=== PATIENT | female | born 1935 | race Caucasian/White ===

== ENCOUNTER 2017-05-09 12:37 | Inpatient (IN) | payer MEDICARE, MEDICAID ==
[2017-05-09 12:51] VITALS: BMI 18.8
[2017-05-09] MEDS ORDERED: Vancomycin 1 gm/NS 200 ml 1 GM/200 ML BAG IVPB STA (13:03)
[2017-05-09] MEDS ORDERED: Piperacill/Tazo 4.5gm in Dex 4.5 GM/100 ML BAG IVPB STA (13:03)
[2017-05-09] MEDS ORDERED: Gentamicin 190 MG in Sodium Chloride 0.9% 100 ML IVPB STA (13:03)
[2017-05-09 13:11] LABS: VENOUS BLOOD GAS BASE EXCESS -1.8 mmol/L (0.0-2.0); VENOUS BLOOD GAS PCO2 48 mmHg (40-60); VENOUS BLOOD GAS PO2 13 mm/Hg (30-55); VENOUS BLOOD PH 7.32 (7.32-7.43)
[2017-05-09 13:13] LABS: BASO % 0.3 % (0.0-2.0); HEMOGLOBIN 9.8 g/dL (11.0-16.0); LYMPH # 2.1 K/uL (1.0-4.3); LYMPH % 15.4 % (20.0-40.0); MEAN CORPUSCULAR HEMOGLOBIN 26.2 pg (27.0-31.0); MEAN CORPUSCULAR HGB CONC 29.5 g/dL (33.0-37.0); MEAN PLATELET VOLUME 9.2 fL (7.2-11.7); MONO # 0.4 K/uL (0.0-0.8); MONO % 2.8 % (0.0-10.0); NEUT # 10.9 K/uL (1.8-7.0); NEUT % 81.5 % (50.0-75.0); RBC 3.74 Mil/uL (3.80-5.20); WHITE BLOOD COUNT 13.4 K/uL (4.8-10.8)
[2017-05-09 13:22] LABS: INR 1.4
[2017-05-09 13:23] LABS: ALBUMIN 3.3 g/dL (3.5-5.0)
[2017-05-09 13:26] LABS: ALB/GLOB RATIO 0.5 (1.0-2.1)
[2017-05-09 13:27] LABS: CALCIUM 10.1 mg/dl (8.6-10.4); MAGNESIUM 2.8 mg/dL (1.6-2.3)
--- NOTE | 2017-05-09 13:27 | C.PDOC ---
History Of Present Illness Pt is an 82 yr old female retirement pt with a PMHx of dementia, osteoperosis , HTN, COPD, GERD, aphasia who is nonverbal who presents to the ED and per retirement sheet patient with "respiratory distress". No additiona HPI is available on CO sheet and pt remains nonverbal--unable to provide any hx. BP at NH 88/60; pulse ox on RA 88% at CO. I did call the daughter (Aide Kramer -- lives in [place], [place]) and she verbally confirmed that the pt is DNR; she confirmed that we should not intubate or do CPR (she was also in process of trying to arrange hospital for mother). PMD Dr. Jaleel Albarran confirmed the same. Time Seen by Provider: 05/09/17 12:53 Chief Complaint (Nursing): Respiratory Distress History Per: Other (Custodial) Past Medical History Reviewed: Historical Data, Nursing Documentation, Vital Signs Vital Signs: Last Vital Signs Temp 100.2 F H 05/09/17 14:55 Pulse 118 H 05/09/17 14:55 Resp 28 H 05/09/17 14:55 BP 142/76 05/09/17 14:55 Pulse Ox 92 L 05/09/17 13:56 - Medical History PMH: COPD, Dementia, HTN, Hypercholesterolemia, Osteoporosis Family History: States: Unknown Family Hx - Social History Hx Tobacco Use: No Hx Alcohol Use: No (UNKNOWN) Hx Substance Use: No (UNKNOWN) - Immunization History Hx Tetanus Toxoid Vaccination: No Review Of Systems Review Of Systems: ROS cannot be obtained secondary to pt's inabilty to answer questions. Respiratory: Positive for: Shortness of Breath Physical Exam - Physical Exam Appears: Toxic (Looks ill; nonverbal) Skin: Other (sacral ulcer) Head: Atraumatic Eye(s): bilateral: EOMI Nose: Normal Oral Mucosa: Dry Tongue: Normal Appearing Lips: Normal Appearing Throat: Normal Neck: Normal Lymphatic: Deferred Chest: Symmetrical Cardiovascular: Rhythm Regular Respiratory: Decreased Breath Sounds (TROY) Gastrointestinal/Abdominal: Normal Exam, Bowel Sounds, Soft, No Tenderness Rectal: Deferred Extremity: Other (contracted) Extremity: Bilateral: Atraumatic Neurological/Psych: Other (nonverbal) ED Course And Treatment - Laboratory Results Result Diagrams: 05/09/17 13:09 05/09/17 13:09 O2 Sat by Pulse Oximetry: 92 Critical Care Time - Critical Care Note Total Time (in mins): 45 Documented critical care: time excludes all time spent performing seperately billable procedures. Medical Decision Making Medical Decision Making: Initial Impression: Septic Shock Initial Plan: Will activate code sepsis order set Dr. Albarran recommends admission to Dr. Ap Uriosetgui I spoke to Dr. Ap Uriostegui--agrees w/ admission. I spoke to ICU attending pay station attendant. He states end-stage dementia plus DNR/DNI is an ICU exclusion criteria here at [facility]. Disposition - Disposition Disposition: HOSPITALIZED Disposition Time: 13:49 Condition: CRITICAL - POA Present On Arrival: Pressure Ulcer - Clinical Impression Clinical Impression: Septic shock, Hypernatremia, Dementia, Sacral decubitus ulcer, Chronic obstructive lung disease, Respiratory distress Decision To Admit - Pt Status Changed To: Hospital Disposition Of: Inpatient - Admit Certification Admit to Inpatient:: After my assessment, the patient will require hospitalization for at least two midnights. This is because of the severity of symptoms shown, intensity of services needed, and/or the medical risk in this patient being treated as an outpatient. - InPatient: Physician Admission Certification: I certify that this patient requires 2 or more midnights of care for the following reason:: Pt w/ septic shock - . Bed Request Type: Telemetry Admitting Physician: Ap Uriostegui Patient Diagnosis: Septic shock, Hypernatremia, Dementia, Sacral decubitus ulcer, Chronic obstructive lung disease, Respiratory distress
[2017-05-09] MEDS ORDERED: Vancomycin 1 GM 1 GM/250 ML BAG IVPB ONE (13:31)
[2017-05-09 13:35] LABS: PROTHROMBIN TIME 16.3 SECONDS (9.7-12.2)
[2017-05-09 13:42] LABS: TROPONIN I 0.017 ng/mL (0.00-0.120)
[2017-05-09] MEDS ORDERED: Sodium Chloride 0.9% 1,000 ML IV ONE (13:44)
[2017-05-09] MEDS ORDERED: Albuterol-Ipratrop 3 mg / 0.5 (3 ml) UD INH STA ×2 (13:50→14:28)
[2017-05-09] MEDS ORDERED: Sodium Chloride 0.9% 3,000 ML ONE (14:07)
[2017-05-09 14:18] LABS: SQUAMOUS EPITHIAL 2 /hpf (0-5); URINE BACTERIA FEW (<OCC); URINE BILIRUBIN NEGATIVE (NEGATIVE); URINE BLOOD NEGATIVE (NEGATIVE); URINE CLARITY Hazy (Clear); URINE COLOR Amber (YELLOW); URINE GLUCOSE (UA) NORMAL (Normal); URINE LEUKOCYTE ESTERASE TRACE Leu/uL (Negative); URINE NITRATE NEGATIVE (NEGATIVE); URINE PROTEIN 1+ mg/dL (NEGATIVE)
[2017-05-09] MEDS ORDERED: Albuterol-Ipratrop 3 mg / 0.5 (3 ml) UD ONE (14:29)
--- NOTE | 2017-05-09 16:48 | RAD ---
HISTORY: Sepsis Patient COMPARISON: No prior. FINDINGS: LUNGS: No consolidation. No gross pulmonary vascular congestion. Possible emphysematous changes PLEURA: No significant pleural effusion identified, no pneumothorax apparent. CARDIOVASCULAR: Probable left ventricular enlargement aortic knob atherosclerotic vascular calcification OSSEOUS STRUCTURES: Analyzed osteopenia. Thoracolumbar spondylosis. Bilateral shoulder arthrosis VISUALIZED UPPER ABDOMEN: Normal. OTHER FINDINGS: None. IMPRESSION: No acute cardiopulmonary pathology apparent
[2017-05-09] MEDS ORDERED: Sodium Chloride 0.45% 1,000 ML IV SCH (17:15)
[2017-05-09 17:18] LABS: VENOUS BLOOD GAS BASE EXCESS -7.3 mmol/L (0.0-2.0); VENOUS BLOOD GAS PCO2 47 mmHg (40-60); VENOUS BLOOD GAS PO2 37 mm/Hg (30-55); VENOUS BLOOD PH 7.24 (7.32-7.43)
[2017-05-09] MEDS: Piperacill/Tazo 3.375gm in Dex 3.375 GM/50 ML BAG IVPB SCH (17:39)
--- NOTE | 2017-05-09 19:29 | HP ---
HISTORY OF PRESENT ILLNESS: I was called to the Emergency Room at [facility] Room wit h an 82-year-old female from [facility] who presented with respiratory distress. She is nonverbal. That is her baseline. She is unable to give any history. PAST MEDICAL HISTORY: She has a past medical history of dementia, osteoporosis, hypertension, COPD, GERD. She is aphasic, nonverbal. She is bedridden at the [facility]. She is a DNR/DNI. We put that in the computer. No CPR. On further medical history, COPD, dementia, hypertension, high cholesterol, osteoporosis. PAST SURGICAL HISTORY: No known surgeries. SOCIAL HISTORY: No smoking, no drinking, no drugs. MEDICATIONS SHE TAKES FROM THE GROUP HOME: She is on albuterol for her asthma, COPD history, Bactr oban cream for scrapes and bruises, Fosamax for osteoporosis, clonidine for hypertension, magnesium r eplacement, milk of magnesia, calcium, and Tylenol as needed. REVIEW OF SYSTEMS: Cannot do a review of systems. She just looks at you, which is her baseline, and nonverbal. PHYSICAL EXAMINATION: VITAL SIGNS: She has 100.2 temp, 118 pulse, 28 respiratory rate, 142/76 blood pressure, 92% oxygen s aturation. GENERAL: She looks ill, nonverbal, and toxic, in distress. HEENT: Head is atraumatic, normocephalic. Throat is dry. NECK: Supple. Thyroid midline. No palpable lymphadenopathy. HEART: Regular rate. LUNGS: Decreased breath sounds, clear to auscultation. ABDOMEN: Soft, nontender, positive bowel sounds. She is thin and frail. EXTREMITIES: Contracted. No edema. SKIN: She does have a sacral ulcer. LABORATORY DATA: On blood tests, she has 166 sodium, 3.5 potassium. I will replace the potassium. She has a BUN of 60, creatinine 1.6. She is definitely in a bit of renal failure. She is dehydrated . Sugar was 299, which she is clearly a diabetic and should be on insulin coverage. Lactic acid 3.8 , quite high, calcium is 10.1, phos is 4.1, magnesium 2.8, total bili is 1, AST is 53, ALT is 42, alk phos 141. Troponin 0.01. BNP was 443, total protein is 9.6, albumin is 3.3, globulin 6.3. Blood g as was acidotic at 7.32. INR is 1.4. A 13.4 white count, elevated, 9.8 hemoglobin, 13.83 hematocrit , with 389 platelets. Chest x-ray with no acute disease. ASSESSMENT AND PLAN: She is here for being in septic shock, dehydration, high sodium, low potassium, elevated blood sugar. She has now a diabetic with no history of that coming the [facility]. I wi ll call in infectious disease, renal, and pulmonary for their consults and opinions. Will put her on IV antibiotics, IV fluids. Watch her very closely. Check her labs tomorrow. Ap Uriostegui DO cc: [id number] TT: 05/09/2017 19:27:41 maureen
[2017-05-09] MEDS: Albuterol-Ipratrop 3 mg / 0.5 (3 ml) UD INH SCH (22:03)
[2017-05-10] MEDS: Piperacill/Tazo 3.375gm in Dex 3.375 GM/50 ML BAG IVPB SCH ×3 (01:05→19:06)
[2017-05-10] MEDS: Albuterol-Ipratrop 3 mg / 0.5 (3 ml) UD INH SCH ×4 (01:26→19:35)
[2017-05-10 08:20] LABS: ALBUMIN 2.6 g/dL (3.5-5.0)
[2017-05-10 08:22] LABS: ALB/GLOB RATIO 0.6 (1.0-2.1); CALCIUM 8.7 mg/dl (8.6-10.4)
[2017-05-10 08:32] LABS: MEAN CELL VOLUME 88.7 fL (81.0-99.0); MEAN CORPUSCULAR HEMOGLOBIN 25.9 pg (27.0-31.0); MEAN CORPUSCULAR HGB CONC 29.3 g/dL (33.0-37.0); MEAN PLATELET VOLUME 9.3 fL (7.2-11.7); RBC 2.84 Mil/uL (3.80-5.20); RED CELL DISTRIBUTION WIDTH 17.2 % (11.5-14.5); WHITE BLOOD COUNT 13.7 K/uL (4.8-10.8)
[2017-05-10 08:41] LABS: HEMOGLOBIN 7.4 g/dL (11.0-16.0)
[2017-05-10] MEDS: (Novolin R) Insulin Human Regular 100 units/ml vial SC SCH ×4 (08:59→22:39)
--- NOTE | 2017-05-10 10:12 | PN ---
DATE: 05/10/2017 I saw her resting in bed in [facility]. IV fluids are running. She is alert. She is looking a t me. Definitely more comfortable than yesterday when I saw her, less upset, breathing better. Mayb e the antibiotics are starting to work and the fluids are helping. Labs are pending this morning. PHYSICAL EXAMINATION: VITAL SIGNS: She has a 98.1 temp, 101 pulse, 114/68 blood pressure, 20 respiratory rate, 95% O2 sat on nasal cannula. HEENT: Her head is atraumatic, normocephalic. She opens her eyes. She looks at me. She is nonverb al. HEART: Regular rate, tachy. LUNGS: Decreased breath sounds, but clear to auscultation bilaterally. ABDOMEN: Soft, scaphoid, nontender, positive bowel sounds. No apparent guarding. EXTREMITIES: She is in a contracted state with her upper and lower extremities. No edema though. She is currently on DuoNeb, insulin coverage, IV fluids and Zosyn IV. We will put her on her diet. I discussed that with the nurse, what she was getting at the nursing [facility]. She came in with an elevated white count of 13.4, hemoglobin of 9.8. Her sodium was domi high at 166, potassium was low at 3.5, that was replaced, BUN is 16, creatinine is 1.6. She was in renal failure mildly. Her blood sugars are 243. She does have coverage. We will see what this morning's labs ar e now that she has been on IV fluids for about 24 hours. Waiting for infectious disease, renal and p ulmonary advice. Check her labs tomorrow. Continue with aggressive treatment and care on the natividad fraga, who is nonverbal[facility] here with possible septic shock, dehy dration, sacral decubitus, diabetes, low potassium, hypernatremia. Ap Uriostegui DO cc: [id number] TT: 05/10/2017 08:32:05 Confirmation # [id number] Dictation # [id number]
[2017-05-10] MEDS: GlipiZIDE 2.5 mg Tab PO SCH (10:19)
[2017-05-10] MEDS: Sodium Chloride 0.45% 1,000 ML IV SCH ×3 (10:20→22:40)
--- NOTE | 2017-05-10 11:18 | CARD ---
APPROVED REPORT EKG Measurement Heart [id number] <Conclusion> Sinus tachycardia with frequent premature ventricular complexes Left axis deviation ST & T wave abnormality, consider lateral ischemia Abnormal ECG
--- NOTE | 2017-05-10 13:32 | CP.PCM.PN ---
Subjective - Date & Time of Evaluation Date of Evaluation: 05/10/17 Time of Evaluation: 13:30 - Subjective Subjective: ENTREPRENEUR NOTES CONSENT FOR BLOOD 82 yr old female [facility] pt with PMHx of dementia, osteoperosis, HTN, COPD , GERD, aphasia who is nonverbal , admitted for resp. distress and sepsis . Hgb dropped from 9.8 - 7.[address] Uriostegui ordered for PRBC transfusion Pt nonverbal and AMS after explaining the the benefits, alternatives, and risks of PRBC transfusion Telephone consent for blood transfusion obtained for daughter ( POA ) Aide hermosillo and RN witnessed will repeat CBC after post transfusion Objective - Vital Signs/Intake and Output Vital Signs (last 24 hours): Temp Pulse Resp BP Pulse Ox 98.8 F 109 H 18 100/45 L 99 05/10/17 07:20 05/10/17 07:20 05/10/17 07:20 05/10/17 10:20 05/10/17 07:20 Intake and Output: 05/10/17 05/10/17 06:59 18:59 Intake Total 420 Output Total 750 Balance -330 - Medications Medications: Current Medications Albuterol/Ipratropium (Duoneb 3 Mg/0.5 Mg (3 Ml) Ud) 3 ml INH RQ6 IVONE Last Admin: 05/10/17 08:05 Dose: 3 ml Glipizide (Glucotrol) 2.5 mg PO ACB IVONE Last Admin: 05/10/17 10:19 Dose: 2.5 mg Piperacillin Sod/Tazobactam Sod (Zosyn 3.375 Gm Iv Premix) 3.375 gm in 50 mls @ 100 mls/hr IVPB Q8H IVONE Last Admin: 05/10/17 09:50 Dose: 100 mls/hr Sodium Chloride (Sodium Chloride 0.45%) 1,000 mls @ 80 mls/hr IV .[id number] IVONE Last Admin: 05/10/17 10:20 Dose: 80 mls/hr Insulin Human Regular (Novolin R) 0 unit SC ACHS IVONE PRN Reason: Protocol Last Admin: 05/10/17 12:32 Dose: 3 unit - Labs Labs: 05/10/17 08:05 05/10/17 08:05 PT 16.3 SECONDS (9.7-12.2) H 05/09/17 13:09 INR 1.4 05/09/17 13:09 APTT 30 SECONDS (21-34) 05/09/17 13:09
--- NOTE | 2017-05-10 14:54 | CP.PCM.CON ---
History of Present Illness - History of Present Illness History of Present Illness: 82 yr old female long-term pt with a PMHx of dementia, osteoperosis, HTN, COPD, GERD, aphasia who is nonverbal who presents to the ED and per long-term sheet patient with "respiratory distress". No additiona HPI is available on NH sheet and pt remains nonverbal--unable to provide any hx. admitted with septic shock to reg floor remains alert nonverbal has decubitus on sacrum - Medical History PMH: COPD, Dementia, HTN, Hypercholesterolemia, Osteoporosis Family History: States: Unknown Family Hx Review of Systems - Review of Systems Systems not reviewed;Unavailable: Altered Mental Status - Constitutional Constitutional: As Per HPI - EENT Eyes: absent: As Per HPI, Blind Spots, Blurred Vision, Change in Vision, Decreased Night Vision, Diplopia, Discharge, Dry Eye, Exophthalmos, Floaters, Irritation, Itchy Eyes, Loss of Peripheral Vision, Pain, Photophobia, Requires Corrective Lenses, Sees Flashes, Spots in Vision, Tunnel Vision, Other Visual Disturbances, Loss of Vision, Other Ears: absent: As Per HPI, Decreased Hearing, Ear Discharge, Ear Pain, Tinnitus, Abnormal Hearing, Disequilibrium, Dizziness, Other Nose/Mouth/Throat: absent: As Per HPI, Epistaxis, Nasal Congestion, Nasal Discharge, Nasal Obstruction, Nasal Trauma, Nose Pain, Post Nasal Drip, Sinus Pain, Sinus Pressure, Bleeding Gums, Change in Voice, Dental Pain, Dry Mouth, Dysphagia, Halitosis, Hoarsness, Lip Swelling, Mouth Lesions, Mouth Pain, Odynophagia, Sore Throat, Throat Swelling, Tongue Swelling, Facial Pain, Neck Pain, Neck Mass, Other - Breasts Breasts: absent: As Per HPI, Change in Shape, Mass, Pain, Nipple Discharge, Nipple Inversion, Skin Changes, Swelling, Other - Cardiovascular Cardiovascular: absent: As Per HPI, Acrocyanosis, Chest Pain, Chest Pain at Rest , Chest Pain with Activity, Claudication, Diaphoresis, Dyspnea, Dyspnea on Exertion, Edema, Irregular Heart Rhythm, Pain Radiating to Arm/Neck/Jaw, Leg Edema, Leg Ulcers, Lightheadedness, Orthopnea, Palpitations, Paroxysmal Nocturnal Dyspnea, Pedal Edema, Radiating Pain, Rapid Heart Rate, Slow Heart Rate, Syncope, Other - Respiratory Respiratory: absent: As Per HPI, Cough, Dyspnea, Hemoptysis, Dyspnea on Exertion , Wheezing, Snoring, Stridor, Pain on Inspiration, Chest Congestion, Excessive Mucous Production, Change in Mucous Color, Pain with Coughing, Other - Gastrointestinal Gastrointestinal: absent: As Per HPI, Abdominal Pain, Belching, Bloating, Change in Bowel Habits, Change in Stool Character, Coffee Ground Emesis, Constipation, Cramping, Diarrhea, Dyspepsia, Dysphagia, Early Satiety, Excessive Flatus, Fecal Incontinence, Heartburn, Hematemesis, Hematochezia, Loose Stools, Melena, Nausea, Odynophagia, Temesmus, Vomiting, Other - Genitourinary Genitourinary: absent: As Per HPI, Change in Urinary Stream, Difficulty Urinating, Dysuria, Flank Pain, Hematuria, Pyuria, Nocturia, Urinary Incontinence, Urinary Frequency, Urinary Hesitance, Urinary Urgency, Voiding Freq/Small Amts, Freq UTI, Hx Renal/Bladder Calculi, Hx /Renal Surgery, Bladder Distension, Other - Reproductive: Female Reproductive:Female: absent: As Per HPI, Amenorrhea, Amenorrhea/ Control, Currently Menstual, Cycle <21 Days, Cycle >35 Days, Cycle Variable, Menses 1-7 Days, Menses >/= 8 Days, Menses Variable, Cycle > 4 Weeks Between, No Menses for 6 Months, Heavy Menses, Light Menses, Normal Menses, Spotting Between Cycles , S/P Hysterectomy, Menopausal, Post Menopausal, Premenarche, Abnormal Vaginal Bleeding, Dysmenorrhea, Dyspareunia, Genital Lesions, Genital Pruritis, Pelvic Pain, Prolapse Symptoms, Sexual Dysfunction, Vaginal Discharge, Vaginal Dryness , Vaginal Odor, Vaginal Pruritis, Other - Menstruation Menstruation: absent: As Per HPI, Amenorrhea, Amenorrhea/ Control, Currently Menstual, Cycle <21 Days, Cycle >35 Days, Cycle Variable, Menses 1-7 Days, Menses >/= 8 Days, Menses Variable, Cycle > 4 Weeks Between, No Menses for 6 Months, Heavy Menses, Light Menses, Normal Menses, Spotting Between Cycles , S/P Hysterectomy, Menopausal, Post Menopausal, Premenarche, Abnormal Vaginal Bleeding, Dysmenorrhea, Other - Musculoskeletal Musculoskeletal: absent: As Per HPI, Abnormal Gait, Arthralgias, Atrophy, Back Pain, Deformity, Joint Swelling, Limited Range of Motion, Loss of Height, Muscle Cramps, Muscle Weakness, Myalgias, Neck Pain, Numbness, Radiating Pain into Limb, Stiffness, Tingling, Other - Integumentary Integumentary: As Per HPI - Neurological Neurological: absent: As Per HPI, Abnormal Gait, Abnormal Hearing, Abnormal Movements, Abnormal Speech, Behavioral Changes, Burning Sensations, Confusion, Convulsions, Disequilibrium, Dizziness, Numbness, Focal Weakness, Frequent Falls , Headaches, Lack of Coordination, Loss of Vision, Memory Loss, Paresthesias, Radicular Pain, Restless Legs, Sensory Deficit, Syncope, Tingling, Tremor, Vertigo, Weakness, Other Visual Disturbances, Other - Psychiatric Psychiatric: absent: As Per HPI, Abnormal Sleep Pattern, Anhedonia, Anxiety, Auditory Hallucinations, Behavioral Changes, Change in Appetite, Change in Libido, Confusion, Depression, Difficulty Concentrating, Hallucinations, Homicidal Ideation, Hopelessness, Irritability, Memory Loss, Mood Swings, Panic Attacks, Paranoia, Suicidal Ideation, Visual Hallucinations, Tactile Hallucinations, Other - Endocrine Endocrine: absent: As Per HPI, Change in Body Appearance, Change in Libido, Cold Intolorance, Deepening of Voice, Excessive Sweating, Fatigue, Flushing, Heat Intolorance, Increase in Ring/Shoe/Hat Size, Palpitations, Polydipsia, Polyphagia, Polyuria, Other - Hematologic/Lymphatic Hematologic: absent: As Per HPI, Easy Bleeding, Easy Bruising, Lymphadenopathy, Other Past Patient History - Infectious Disease Hx of Infectious Diseases: None - Past Medical History & Family History Past Medical History?: Yes - Past Social History Smoking Status: Never Smoked - CARDIAC Hx Hypertension: Yes - PULMONARY Hx Chronic Obstructive Pulmonary Disease (COPD): Yes - NEUROLOGICAL Hx Dementia: Yes - HEENT Hx HEENT Problems: Yes Hx Cataracts: Yes - INTEGUMENTARY Hx Dermatological Problems: (BILATERAL BUTOOCKS WITH LARGE HARDENED SKIN.INTACT SKIN.) Other/Comment: OPEN WOUND TO RIGHT INNER LOWER BUTTOCK MEASURES 2 CM X 0.5 CM DRY REDDENED SKIN. NO INDENTATION.IASD. - MUSCULOSKELETAL/RHEUMATOLOGICAL Hx Falls: No - GASTROINTESTINAL Hx Gastroesophageal Reflux: Yes - GENITOURINARY/GYNECOLOGICAL Hx Genitourinary Disorders: Yes Hx Incontinence: Yes - PSYCHIATRIC Hx Substance Use: No - SURGICAL HISTORY Hx Surgeries: (UNKNOWN) - ANESTHESIA Hx Anesthesia: No Meds Allergies/Adverse Reactions: Allergies Allergy/AdvReac Type Severity Reaction Status Date / Time No Known Allergies Allergy Verified 05/09/17 12:48 - Medications Medications: Current Medications Albuterol/Ipratropium (Duoneb 3 Mg/0.5 Mg (3 Ml) Ud) 3 ml INH RQ6 [facility] Last Admin: 05/10/17 13:41 Dose: 3 ml Glipizide (Glucotrol) 2.5 mg PO ACB [facility] Last Admin: 05/10/17 10:19 Dose: 2.5 mg Piperacillin Sod/Tazobactam Sod (Zosyn 3.375 Gm Iv Premix) 3.375 gm in 50 mls @ 100 mls/hr IVPB Q8H [facility] Last Admin: 05/10/17 09:50 Dose: 100 mls/hr Sodium Chloride (Sodium Chloride 0.45%) 1,000 mls @ 80 mls/hr IV .[id number] [facility] Last Admin: 05/10/17 10:20 Dose: 80 mls/hr Insulin Human Regular (Novolin R) 0 unit SC ACHS [facility] PRN Reason: Protocol Last Admin: 05/10/17 12:32 Dose: 3 unit Physical Exam - Constitutional Appears: Toxic, Cachectic, Chronically Ill - Head Exam Head Exam: NORMOCEPHALIC - Eye Exam Eye Exam: absent: Scleral icterus - ENT Exam ENT Exam: Mucous Membranes Dry, Normal External Ear Exam - Neck Exam Neck exam: Negative for: Lymphadenopathy - Respiratory Exam Respiratory Exam: Decreased Breath Sounds, Rhonchi - Cardiovascular Exam Cardiovascular Exam: REGULAR RHYTHM, +S1, +S2 - GI/Abdominal Exam GI & Abdominal Exam: Diminished Bowel Sounds, Soft. absent: Tenderness - Rectal Exam Rectal Exam: Deferred - Exam Exam: NORMAL INSPECTION - Extremities Exam Extremities exam: Negative for: calf tenderness, pedal edema - Back Exam Back exam: absent: CVA tenderness (L), CVA tenderness (R) - Neurological Exam Neurological exam: Alert, Altered, CN II-XII Intact - Psychiatric Exam Psychiatric exam: Depressed - Skin Skin Exam: Dry Results - Vital Signs Recent Vital Signs: Last Vital Signs Temp 99.4 F 05/10/17 14:12 Pulse 123 H 05/10/17 14:12 Resp 20 05/10/17 14:12 BP 106/61 05/10/17 14:12 Pulse Ox 99 05/10/17 07:20 - Labs Result Diagrams: 05/10/17 08:05 05/10/17 08:05 Labs: Laboratory Results - last 24 hr 05/09/17 05/09/17 05/09/17 15:37 16:59 21:35 WBC RBC Hgb Hct MCV MCH MCHC RDW Plt Count MPV pO2 37 VBG pH 7.24 L VBG pCO2 47 VBG HCO3 18.2 VBG Total CO2 21.5 L VBG O2 Sat (Calc) 63.0 VBG Base Excess -7.3 L VBG Potassium 3.7 Sodium 167.0 H* Chloride 136.0 H Glucose 157 H Lactate 5.3 H* Crit Value Called To Xin abebe 6t Crit Value Called By Geoff gr Crit Value Read Back Y Blood Gas Notified Time 1717 Potassium Carbon Dioxide Anion Gap BUN Creatinine Est GFR ( Amer) Est GFR (Non-Af Amer) POC Glucose (mg/dL) 243 H Random Glucose Lactic Acid 3.8 H Calcium Total Bilirubin AST ALT Alkaline Phosphatase Total Protein Albumin Globulin Albumin/Globulin Ratio Venous Blood Potassium 3.7 Blood Type Antibody Screen Crossmatch 05/10/17 05/10/17 05/10/17 06:29 08:05 08:05 WBC 13.7 H RBC 2.84 L Hgb 7.4 L D Hct 25.2 L MCV 88.7 MCH 25.9 L MCHC 29.3 L RDW 17.2 H Plt Count 263 D MPV 9.3 pO2 VBG pH VBG pCO2 VBG HCO3 VBG Total CO2 VBG O2 Sat (Calc) VBG Base Excess VBG Potassium Sodium 166 H* Chloride 134 H Glucose Lactate Crit Value Called To Crit Value Called By Crit Value Read Back Blood Gas Notified Time Potassium 3.1 L Carbon Dioxide 21 L Anion Gap 14 BUN 39 H Creatinine 1.1 Est GFR ( Amer) 58 Est GFR (Non-Af Amer) 48 POC Glucose (mg/dL) 203 H Random Glucose 164 H Lactic Acid Calcium 8.7 Total Bilirubin 0.9 AST 27 ALT 25 Alkaline Phosphatase 99 Total Protein 6.9 Albumin 2.6 L D Globulin 4.3 H Albumin/Globulin Ratio 0.6 L Venous Blood Potassium Blood Type Antibody Screen Crossmatch 05/10/17 05/10/17 11:10 11:34 WBC RBC Hgb Hct MCV MCH MCHC RDW Plt Count MPV pO2 VBG pH VBG pCO2 VBG HCO3 VBG Total CO2 VBG O2 Sat (Calc) VBG Base Excess VBG Potassium Sodium Chloride Glucose Lactate Crit Value Called To Crit Value Called By Crit Value Read Back Blood Gas Notified Time Potassium Carbon Dioxide Anion Gap BUN Creatinine Est GFR ( Amer) Est GFR (Non-Af Amer) POC Glucose (mg/dL) 208 H Random Glucose Lactic Acid Calcium Total Bilirubin AST ALT Alkaline Phosphatase Total Protein Albumin Globulin Albumin/Globulin Ratio Venous Blood Potassium Blood Type O POSITIVE Antibody Screen Negative Crossmatch See Detail Assessment & Plan (1) Chronic obstructive lung disease Status: Acute (2) Dementia Status: Acute (3) Respiratory distress Status: Acute (4) Sacral decubitus ulcer Status: Acute (5) Septic shock Status: Acute (6) Cellulitis of buttock, left Status: Acute (7) COPD (chronic obstructive pulmonary disease) Status: Chronic - Assessment and Plan (Free Text) Assessment: iv rx ordered will follow poor prognosis
[2017-05-10] MEDS ORDERED: Vancomycin 1 gm/NS 200 ml 1 GM/200 ML BAG IVPB ONE (15:00)
--- NOTE | 2017-05-10 21:54 | CP.PCM.CON ---
History of Present Illness - History of Present Illness History of Present Illness: History from chart, pt has advanced dementia. Pt is an 82 yr old female fpc pt with a PMHx of dementia, osteoperosis , HTN, COPD, GERD, aphasia who is nonverbal who presents to the ED and per fpc sheet patient with "respiratory distress". No additiona HPI is available on CO sheet and pt remains nonverbal--unable to provide any hx. BP at CO 88/60; pulse ox on RA 88% at CO. REnal consulted for elevated creatinine and high na level. na 170 initially, overnight on 1/2NS DNR/DNI status Review of Systems - Review of Systems Systems not reviewed;Unavailable: Altered Mental Status Past Patient History - Infectious Disease Hx of Infectious Diseases: None - Past Medical History & Family History Past Medical History?: Yes - Past Social History Smoking Status: Never Smoked - CARDIAC Hx Hypertension: Yes - PULMONARY Hx Chronic Obstructive Pulmonary Disease (COPD): Yes - NEUROLOGICAL Hx Dementia: Yes - HEENT Hx HEENT Problems: Yes Hx Cataracts: Yes - INTEGUMENTARY Hx Dermatological Problems: (BILATERAL BUTOOCKS WITH LARGE HARDENED SKIN.INTACT SKIN.) Other/Comment: OPEN WOUND TO RIGHT INNER LOWER BUTTOCK MEASURES 2 CM X 0.5 CM DRY REDDENED SKIN. NO INDENTATION.IASD. - MUSCULOSKELETAL/RHEUMATOLOGICAL Hx Falls: No - GASTROINTESTINAL Hx Gastroesophageal Reflux: Yes - GENITOURINARY/GYNECOLOGICAL Hx Genitourinary Disorders: Yes Hx Incontinence: Yes - PSYCHIATRIC Hx Substance Use: No - SURGICAL HISTORY Hx Surgeries: (UNKNOWN) - ANESTHESIA Hx Anesthesia: No Meds Allergies/Adverse Reactions: Allergies Allergy/AdvReac Type Severity Reaction Status Date / Time No Known Allergies Allergy Verified 05/09/17 12:48 - Medications Medications: Current Medications Albuterol/Ipratropium (Duoneb 3 Mg/0.5 Mg (3 Ml) Ud) 3 ml INH RQ6 IVONE Last Admin: 05/10/17 19:35 Dose: 3 ml Glipizide (Glucotrol) 2.5 mg PO ACB IVONE Last Admin: 05/10/17 10:19 Dose: 2.5 mg Piperacillin Sod/Tazobactam Sod (Zosyn 3.375 Gm Iv Premix) 3.375 gm in 50 mls @ 100 mls/hr IVPB Q8H IVONE Last Admin: 05/10/17 19:06 Dose: 100 mls/hr Sodium Chloride (Sodium Chloride 0.45%) 1,000 mls @ 80 mls/hr IV .[id number] [facility] Last Admin: 05/10/17 17:27 Dose: 80 mls/hr Vancomycin/Sodium Chloride (Vancocin) 1 gm in 200 mls @ 133.333 mls/hr IVPB Q24H IVONE Insulin Human Regular (Novolin R) 0 unit SC ACHS IVONE PRN Reason: Protocol Last Admin: 05/10/17 17:21 Dose: Not Given Physical Exam - Constitutional Appears: Unkempt, Cachectic, Chronically Ill - Head Exam Head Exam: NORMAL INSPECTION - Eye Exam Eye Exam: Normal appearance - ENT Exam ENT Exam: Mucous Membranes Dry - Neck Exam Neck exam: Positive for: Normal Inspection - Respiratory Exam Respiratory Exam: Decreased Breath Sounds, NORMAL BREATHING PATTERN - Cardiovascular Exam Cardiovascular Exam: Tachycardia, REGULAR RHYTHM - GI/Abdominal Exam GI & Abdominal Exam: Diminished Bowel Sounds, Soft - Extremities Exam Extremities exam: Positive for: normal inspection Results - Vital Signs Recent Vital Signs: Last Vital Signs Temp 98.0 F 05/10/17 21:34 Pulse 111 H 05/10/17 21:34 Resp 20 05/10/17 21:34 BP 101/61 05/10/17 21:34 Pulse Ox 100 05/10/17 16:00 - Labs Result Diagrams: 05/10/17 08:05 05/10/17 08:05 Labs: Laboratory Results - last 24 hr 05/10/17 05/10/17 05/10/17 06:29 08:05 08:05 WBC 13.7 H RBC 2.84 L Hgb 7.4 L D Hct 25.2 L MCV 88.7 MCH 25.9 L MCHC 29.3 L RDW 17.2 H Plt Count 263 D MPV 9.3 Sodium 166 H* Potassium 3.1 L Chloride 134 H Carbon Dioxide 21 L Anion Gap 14 BUN 39 H Creatinine 1.1 Est GFR ( Amer) 58 Est GFR (Non-Af Amer) 48 POC Glucose (mg/dL) 203 H Random Glucose 164 H Calcium 8.7 Total Bilirubin 0.9 AST 27 ALT 25 Alkaline Phosphatase 99 Total Protein 6.9 Albumin 2.6 L D Globulin 4.3 H Albumin/Globulin Ratio 0.6 L Blood Type Antibody Screen Crossmatch 05/10/17 05/10/17 11:10 11:34 WBC RBC Hgb Hct MCV MCH MCHC RDW Plt Count MPV Sodium Potassium Chloride Carbon Dioxide Anion Gap BUN Creatinine Est GFR ( Amer) Est GFR (Non-Af Amer) POC Glucose (mg/dL) 208 H Random Glucose Calcium Total Bilirubin AST ALT Alkaline Phosphatase Total Protein Albumin Globulin Albumin/Globulin Ratio Blood Type O POSITIVE Antibody Screen Negative Crossmatch See Detail Assessment & Plan (1) Dementia Status: Acute (2) Hypernatremia Status: Acute (3) Respiratory distress Status: Acute (4) Sacral decubitus ulcer Status: Acute (5) Septic shock Status: Acute (6) COPD (chronic obstructive pulmonary disease) Status: Chronic - Assessment and Plan (Free Text) Assessment: # greyson / sepsis # hypernatremia/ dehydration # lactic acidosis # dementia # sepsis/hypotension Plan: Maintain 1/2NS at 80cc/hr, strict I/Os encourage po intake antibiotics. follow cultures poor prognosis
[2017-05-11] MEDS: Albuterol-Ipratrop 3 mg / 0.5 (3 ml) UD INH SCH ×4 (01:15→19:34)
[2017-05-11] MEDS: Piperacill/Tazo 3.375gm in Dex 3.375 GM/50 ML BAG IVPB SCH ×3 (01:25→17:15)
[2017-05-11 07:09] LABS: MEAN CORPUSCULAR HEMOGLOBIN 26.2 pg (27.0-31.0); MEAN CORPUSCULAR HGB CONC 31.1 g/dL (33.0-37.0); MEAN PLATELET VOLUME 9.3 fL (7.2-11.7); RBC 3.89 Mil/uL (3.80-5.20); RED CELL DISTRIBUTION WIDTH 17.5 % (11.5-14.5); WHITE BLOOD COUNT 12.5 K/uL (4.8-10.8)
[2017-05-11 07:18] LABS: HEMOGLOBIN 10.2 g/dL (11.0-16.0)
[2017-05-11 07:25] LABS: ALBUMIN 2.6 g/dL (3.5-5.0)
[2017-05-11 07:29] LABS: ALB/GLOB RATIO 0.6 (1.0-2.1); CALCIUM 8.6 mg/dl (8.6-10.4)
[2017-05-11] MEDS: (Novolin R) Insulin Human Regular 100 units/ml vial SC SCH ×4 (08:00→22:27)
[2017-05-11] MEDS: GlipiZIDE 2.5 mg Tab PO SCH (08:00)
--- NOTE | 2017-05-11 10:18 | CP.PCM.PN ---
Subjective - Date & Time of Evaluation Date of Evaluation: 05/11/17 Time of Evaluation: 10:15 - Subjective Subjective: output 3800cc sodium down to 158 creatinin 1.2 and stable hypokalemic afebrile bp stable awake comfortable follows no commands and answers no questions ROS not available due to unresponsiveness Objective - Vital Signs/Intake and Output Vital Signs (last 24 hours): Temp Pulse Resp BP Pulse Ox 98.3 F 108 H 20 126/76 100 05/11/17 01:01 05/11/17 04:19 05/11/17 01:01 05/11/17 01:01 05/10/17 23:10 Intake and Output: 05/11/17 05/11/17 06:59 18:59 Intake Total 1815 Output Total 1200 Balance 615 - Medications Medications: Current Medications Albuterol/Ipratropium (Duoneb 3 Mg/0.5 Mg (3 Ml) Ud) 3 ml INH RQ6 [facility] Last Admin: 05/11/17 07:21 Dose: 3 ml Glipizide (Glucotrol) 2.5 mg PO ACB [facility] Last Admin: 05/11/17 08:00 Dose: Not Given Piperacillin Sod/Tazobactam Sod (Zosyn 3.375 Gm Iv Premix) 3.375 gm in 50 mls @ 100 mls/hr IVPB Q8H [facility] Last Admin: 05/11/17 08:39 Dose: 100 mls/hr Sodium Chloride (Sodium Chloride 0.45%) 1,000 mls @ 80 mls/hr IV .[id number] [facility] Last Admin: 05/10/17 22:40 Dose: Not Given Vancomycin/Sodium Chloride (Vancocin) 1 gm in 200 mls @ 133.333 mls/hr IVPB Q24H [facility] Insulin Human Regular (Novolin R) 0 unit SC ACHS IVONE PRN Reason: Protocol Last Admin: 05/11/17 08:00 Dose: Not Given - Labs Labs: 05/11/17 06:58 05/11/17 06:58 PT 16.3 SECONDS (9.7-12.2) H 05/09/17 13:09 INR 1.4 05/09/17 13:09 APTT 30 SECONDS (21-34) 05/09/17 13:09 - Constitutional Appears: No Acute Distress, Cachectic - Respiratory Exam Respiratory Exam: Clear to Ausculation Bilateral - Cardiovascular Exam Cardiovascular Exam: REGULAR RHYTHM - GI/Abdominal Exam GI & Abdominal Exam: Soft. absent: Distended, Tenderness - Extremities Exam Extremities Exam: absent: Calf Tenderness Additional comments: thighs flexed on trunk - Back Exam Additional comments: no pre sacral edema - Skin Skin Exam: Dry Additional comments: poor skin turgor Assessment and Plan (1) Dementia Status: Acute (2) Hypernatremia Status: Acute (3) HTN (hypertension) Status: Chronic - Assessment and Plan (Free Text) Plan: to continue present iv hydration supplement k follow chems closely continue supportive care
[2017-05-11] MEDS: Potassium Chloride 20 MEQ in Sodium Chloride 0.45% 1,000 ML IV SCH ×2 (10:30→14:38)
--- NOTE | 2017-05-11 11:39 | CP.PCM.CON ---
History of Present Illness - History of Present Illness History of Present Illness: pt admitted with sepsis and hypotension improving with abx and supportive care severe dementia non verbal Review of Systems - Review of Systems Systems not reviewed;Unavailable: Dementia, Altered Mental Status, Uncooperative Past Patient History - Infectious Disease Hx of Infectious Diseases: None - Past Medical History & Family History Past Medical History?: Yes - Past Social History Smoking Status: Never Smoked - CARDIAC Hx Hypertension: Yes - PULMONARY Hx Chronic Obstructive Pulmonary Disease (COPD): Yes - NEUROLOGICAL Hx Dementia: Yes - HEENT Hx HEENT Problems: Yes Hx Cataracts: Yes - INTEGUMENTARY Hx Dermatological Problems: (BILATERAL BUTOOCKS WITH LARGE HARDENED SKIN.INTACT SKIN.) Other/Comment: OPEN WOUND TO RIGHT INNER LOWER BUTTOCK MEASURES 2 CM X 0.5 CM DRY REDDENED SKIN. NO INDENTATION.IASD. - MUSCULOSKELETAL/RHEUMATOLOGICAL Hx Falls: No - GASTROINTESTINAL Hx Gastroesophageal Reflux: Yes - GENITOURINARY/GYNECOLOGICAL Hx Genitourinary Disorders: Yes Hx Incontinence: Yes - PSYCHIATRIC Hx Substance Use: No - SURGICAL HISTORY Hx Surgeries: (UNKNOWN) - ANESTHESIA Hx Anesthesia: No Meds Allergies/Adverse Reactions: Allergies Allergy/AdvReac Type Severity Reaction Status Date / Time No Known Allergies Allergy Verified 05/09/17 12:48 - Medications Medications: Current Medications Albuterol/Ipratropium (Duoneb 3 Mg/0.5 Mg (3 Ml) Ud) 3 ml INH RQ6 [facility] Last Admin: 05/11/17 07:21 Dose: 3 ml Glipizide (Glucotrol) 2.5 mg PO ACB [facility] Last Admin: 05/11/17 08:00 Dose: Not Given Piperacillin Sod/Tazobactam Sod (Zosyn 3.375 Gm Iv Premix) 3.375 gm in 50 mls @ 100 mls/hr IVPB Q8H [facility] Last Admin: 05/11/17 08:39 Dose: 100 mls/hr Vancomycin/Sodium Chloride (Vancocin) 1 gm in 200 mls @ 133.333 mls/hr IVPB Q24H [facility] Potassium Chloride 20 meq/ (Sodium Chloride) 1,010 mls @ 75 mls/hr IV .[id number] [facility] Insulin Human Regular (Novolin R) 0 unit SC ACHS IVONE PRN Reason: Protocol Last Admin: 05/11/17 08:00 Dose: Not Given Physical Exam - Constitutional Appears: No Acute Distress, Chronically Ill - Head Exam Head Exam: ATRAUMATIC, NORMOCEPHALIC - ENT Exam ENT Exam: Mucous Membranes Moist - Neck Exam Neck exam: Positive for: Normal Inspection - Respiratory Exam Respiratory Exam: Decreased Breath Sounds - Cardiovascular Exam Cardiovascular Exam: +S1, +S2 - GI/Abdominal Exam GI & Abdominal Exam: Normal Bowel Sounds - Rectal Exam Rectal Exam: Deferred - Skin Additional comments: sacral decub Results - Vital Signs Recent Vital Signs: Last Vital Signs Temp 98.3 F 05/11/17 01:01 Pulse 108 H 05/11/17 04:19 Resp 20 05/11/17 01:01 BP 126/76 05/11/17 01:01 Pulse Ox 100 05/10/17 23:10 - Labs Result Diagrams: 05/11/17 06:58 05/11/17 06:58 Labs: Laboratory Results - last 24 hr 05/10/17 05/10/17 05/10/17 11:34 17:16 21:52 WBC RBC Hgb Hct MCV MCH MCHC RDW Plt Count MPV Sodium Potassium Chloride Carbon Dioxide Anion Gap BUN Creatinine Est GFR ( Amer) Est GFR (Non-Af Amer) POC Glucose (mg/dL) 137 H 135 H Random Glucose Calcium Total Bilirubin AST ALT Alkaline Phosphatase Total Protein Albumin Globulin Albumin/Globulin Ratio Blood Type O POSITIVE Antibody Screen Negative Crossmatch See Detail 05/11/17 05/11/17 05/11/17 06:44 06:58 06:58 WBC 12.5 H RBC 3.89 Hgb 10.2 L D Hct 32.7 L MCV 84.0 D MCH 26.2 L MCHC 31.1 L RDW 17.5 H Plt Count 240 MPV 9.3 Sodium 158 H Potassium 2.8 L Chloride 124 H Carbon Dioxide 24 Anion Gap 13 BUN 33 H Creatinine 1.2 Est GFR ( Amer) 52 Est GFR (Non-Af Amer) 43 POC Glucose (mg/dL) 89 Random Glucose 96 Calcium 8.6 Total Bilirubin 1.3 AST 33 ALT 24 Alkaline Phosphatase 108 Total Protein 7.0 Albumin 2.6 L Globulin 4.4 H Albumin/Globulin Ratio 0.6 L Blood Type Antibody Screen Crossmatch Assessment & Plan (1) Chronic obstructive lung disease Status: Acute (2) Dementia Status: Acute (3) Sacral decubitus ulcer Status: Acute (4) Septic shock Status: Acute
[2017-05-11] MEDS: Vancomycin 1 gm/NS 200 ml 1 GM/200 ML BAG IVPB SCH (17:45)
[2017-05-11] MEDS: Budesonide 0.5 mg/2 ml Inhal Susp UD INH SCH (19:34)
[2017-05-12] MEDS: Piperacill/Tazo 3.375gm in Dex 3.375 GM/50 ML BAG IVPB SCH ×3 (01:06→17:20)
[2017-05-12] MEDS: Albuterol-Ipratrop 3 mg / 0.5 (3 ml) UD INH SCH ×4 (01:14→19:53)
[2017-05-12] MEDS: Budesonide 0.5 mg/2 ml Inhal Susp UD INH SCH ×2 (07:33→19:53)
[2017-05-12] MEDS: (Novolin R) Insulin Human Regular 100 units/ml vial SC SCH ×3 (08:00→17:30)
[2017-05-12] MEDS: GlipiZIDE 2.5 mg Tab PO SCH (08:00)
[2017-05-12 08:39] LABS: GFR AFRICAN-AMERICAN > 60; GFR NON-AFRICAN AMERICAN 53
[2017-05-12 08:40] LABS: BLOOD UREA NITROGEN 29 mg/dL (7-17); CALCIUM 9.2 mg/dl (8.6-10.4)
[2017-05-12 08:41] LABS: MAGNESIUM 2.3 mg/dL (1.6-2.3)
[2017-05-12] MEDS: Potassium Chloride 20 MEQ in Sodium Chloride 0.45% 1,000 ML IV SCH (09:15)
--- NOTE | 2017-05-12 13:28 | CP.PCM.PN ---
Subjective - Date & Time of Evaluation Date of Evaluation: 05/12/17 Time of Evaluation: 13:25 - Subjective Subjective: covering for DR Uriostegui clinically poorly responsive, being treated for sepsis failed swallow eval NPO for now GI consult for PeG if family agreeable hypernatremia change ivf to d5w to correct Objective - Vital Signs/Intake and Output Vital Signs (last 24 hours): Temp Pulse Resp BP Pulse Ox 99.3 F 108 H 20 131/68 99 05/12/17 10:09 05/12/17 11:31 05/12/17 10:09 05/12/17 10:09 05/12/17 11:31 Intake and Output: 05/12/17 05/12/17 06:59 18:59 Intake Total 600 Output Total 550 Balance 50 - Medications Medications: Current Medications Albuterol/Ipratropium (Duoneb 3 Mg/0.5 Mg (3 Ml) Ud) 3 ml INH RQ6 IVONE Last Admin: 05/12/17 07:33 Dose: 3 ml Budesonide (Pulmicort Respules) 0.5 mg INH RQ12 IVONE Last Admin: 05/12/17 07:33 Dose: 0.5 mg Glipizide (Glucotrol) 2.5 mg PO ACB IVONE Last Admin: 05/12/17 08:00 Dose: Not Given Piperacillin Sod/Tazobactam Sod (Zosyn 3.375 Gm Iv Premix) 3.375 gm in 50 mls @ 100 mls/hr IVPB Q8H IVONE Last Admin: 05/12/17 09:15 Dose: 100 mls/hr Vancomycin/Sodium Chloride (Vancocin) 1 gm in 200 mls @ 133.333 mls/hr IVPB Q24H IVONE Last Admin: 05/11/17 17:45 Dose: 133.333 mls/hr Potassium Chloride 10 meq/ (Dextrose) 1,005 mls @ 100 mls/hr IV .Q10H3M [facility] Insulin Human Regular (Novolin R) 0 unit SC ACHS IVONE PRN Reason: Protocol Last Admin: 05/12/17 08:00 Dose: Not Given - Labs Labs: 05/11/17 06:58 05/12/17 08:21 PT 16.3 SECONDS (9.7-12.2) H 05/09/17 13:09 INR 1.4 05/09/17 13:09 APTT 30 SECONDS (21-34) 05/09/17 13:09 - Constitutional Appears: No Acute Distress - Head Exam Head Exam: ATRAUMATIC, NORMOCEPHALIC - Eye Exam Eye Exam: Normal appearance - ENT Exam ENT Exam: Mucous Membranes Moist - Respiratory Exam Respiratory Exam: Decreased Breath Sounds - Cardiovascular Exam Cardiovascular Exam: +S1, +S2 - GI/Abdominal Exam GI & Abdominal Exam: Normal Bowel Sounds - Rectal Exam Rectal Exam: Deferred - Skin Additional comments: sacral wound Assessment and Plan (1) Chronic obstructive lung disease Status: Acute (2) Dementia Status: Acute (3) Sacral decubitus ulcer Status: Acute (4) Septic shock Status: Acute
--- NOTE | 2017-05-12 14:47 | CP.PCM.PN ---
Subjective - Date & Time of Evaluation Date of Evaluation: 05/12/17 Time of Evaluation: 08:00 - Subjective Subjective: REMAINS WEAK, LETHARGIC AND BEDRIDDEN IV ANTIBIOTICS REORDERED IV FLUIDS ADJUSTED Objective - Vital Signs/Intake and Output Vital Signs (last 24 hours): Temp Pulse Resp BP Pulse Ox 99.3 F 108 H 20 131/68 99 05/12/17 10:09 05/12/17 11:31 05/12/17 10:09 05/12/17 10:09 05/12/17 11:31 Intake and Output: 05/12/17 05/12/17 06:59 18:59 Intake Total 600 Output Total 550 Balance 50 - Medications Medications: Current Medications Albuterol/Ipratropium (Duoneb 3 Mg/0.5 Mg (3 Ml) Ud) 3 ml INH RQ6 [facility] Last Admin: 05/12/17 13:15 Dose: 3 ml Budesonide (Pulmicort Respules) 0.5 mg INH RQ12 IVONE Last Admin: 05/12/17 07:33 Dose: 0.5 mg Glipizide (Glucotrol) 2.5 mg PO ACB [facility] Last Admin: 05/12/17 08:00 Dose: Not Given Piperacillin Sod/Tazobactam Sod (Zosyn 3.375 Gm Iv Premix) 3.375 gm in 50 mls @ 100 mls/hr IVPB Q8H [facility] Last Admin: 05/12/17 09:15 Dose: 100 mls/hr Vancomycin/Sodium Chloride (Vancocin) 1 gm in 200 mls @ 133.333 mls/hr IVPB Q24H [facility] Last Admin: 05/11/17 17:45 Dose: 133.333 mls/hr Potassium Chloride 10 meq/ (Dextrose) 1,005 mls @ 100 mls/hr IV .Q10H3M [facility] Insulin Human Regular (Novolin R) 0 unit SC ACHS IVONE PRN Reason: Protocol Last Admin: 05/12/17 08:00 Dose: Not Given - Labs Labs: 05/11/17 06:58 05/12/17 08:21 PT 16.3 SECONDS (9.7-12.2) H 05/09/17 13:09 INR 1.4 05/09/17 13:09 APTT 30 SECONDS (21-34) 05/09/17 13:09 - Constitutional Appears: Toxic, Confused, Cachectic, Chronically Ill - Head Exam Head Exam: NORMOCEPHALIC - Eye Exam Eye Exam: absent: Scleral icterus - ENT Exam ENT Exam: Mucous Membranes Dry - Neck Exam Neck Exam: absent: Lymphadenopathy - Respiratory Exam Respiratory Exam: Decreased Breath Sounds, Rhonchi - Cardiovascular Exam Cardiovascular Exam: Tachycardia, REGULAR RHYTHM, +S1, +S2 - GI/Abdominal Exam GI & Abdominal Exam: Distended, Soft. absent: Tenderness - Rectal Exam Rectal Exam: Deferred - Exam Exam: NORMAL INSPECTION - Extremities Exam Extremities Exam: absent: Pedal Edema - Back Exam Back Exam: absent: CVA tenderness (L), CVA tenderness (R) - Neurological Exam Neurological Exam: Altered - Psychiatric Exam Psychiatric exam: Depressed - Skin Skin Exam: Dry Assessment and Plan (1) Chronic obstructive lung disease Status: Acute (2) Dementia Status: Acute (3) Respiratory distress Status: Acute (4) Sacral decubitus ulcer Status: Acute (5) Septic shock Status: Acute (6) Cellulitis of buttock, left Status: Acute (7) COPD (chronic obstructive pulmonary disease) Status: Chronic - Assessment and Plan (Free Text) Assessment: CONT RX SEPSIS/ INFECTED DECUBITI/
--- NOTE | 2017-05-12 16:00 | CP.PCM.CON ---
History of Present Illness - History of Present Illness History of Present Illness: SURGERY CONSULT NOTE FOR DR. CARRASQUILLO 82F presents to [facility] for shortness of breath. Surgery consulted for buttock wound. Patient has hx of dementia and is non-verbal. She has been seen in [facility] for the same wound last year. PMH: Dementia, Osteoporosis, HTN, COPD, GERD, HLD PSH: unknown Allergies: NKDA as per chart Past Patient History - Infectious Disease Hx of Infectious Diseases: None - Past Medical History & Family History Past Medical History?: Yes - Past Social History Smoking Status: Never Smoked - CARDIAC Hx Hypercholesterolemia: Yes Hx Hypertension: Yes - PULMONARY Hx Chronic Obstructive Pulmonary Disease (COPD): Yes - NEUROLOGICAL Hx Dementia: Yes - HEENT Hx HEENT Problems: Yes Hx Cataracts: Yes - INTEGUMENTARY Hx Dermatological Problems: (BILATERAL BUTOOCKS WITH LARGE HARDENED SKIN.INTACT SKIN.) Other/Comment: OPEN WOUND TO RIGHT INNER LOWER BUTTOCK MEASURES 2 CM X 0.5 CM DRY REDDENED SKIN. NO INDENTATION.IASD. - MUSCULOSKELETAL/RHEUMATOLOGICAL Hx Falls: No - GASTROINTESTINAL Hx Gastroesophageal Reflux: Yes - GENITOURINARY/GYNECOLOGICAL Hx Genitourinary Disorders: Yes Hx Incontinence: Yes - PSYCHIATRIC Hx Substance Use: No - SURGICAL HISTORY Hx Surgeries: (UNKNOWN) - ANESTHESIA Hx Anesthesia: No Meds Allergies/Adverse Reactions: Allergies Allergy/AdvReac Type Severity Reaction Status Date / Time No Known Allergies Allergy Verified 05/09/17 12:48 - Medications Medications: Current Medications Albuterol/Ipratropium (Duoneb 3 Mg/0.5 Mg (3 Ml) Ud) 3 ml INH RQ6 IVONE Last Admin: 05/12/17 13:15 Dose: 3 ml Budesonide (Pulmicort Respules) 0.5 mg INH RQ12 IVONE Last Admin: 05/12/17 07:33 Dose: 0.5 mg Glipizide (Glucotrol) 2.5 mg PO ACB [facility] Last Admin: 05/12/17 08:00 Dose: Not Given Piperacillin Sod/Tazobactam Sod (Zosyn 3.375 Gm Iv Premix) 3.375 gm in 50 mls @ 100 mls/hr IVPB Q8H [facility] Last Admin: 05/12/17 09:15 Dose: 100 mls/hr Vancomycin/Sodium Chloride (Vancocin) 1 gm in 200 mls @ 133.333 mls/hr IVPB Q24H [facility] Last Admin: 05/11/17 17:45 Dose: 133.333 mls/hr Potassium Chloride 10 meq/ (Dextrose) 1,005 mls @ 100 mls/hr IV .Q10H3M [facility] Last Admin: 05/12/17 12:30 Dose: 100 mls/hr Insulin Human Regular (Novolin R) 0 unit SC ACHS IVONE PRN Reason: Protocol Last Admin: 05/12/17 12:30 Dose: Not Given Physical Exam - Constitutional Appears: Non-toxic, No Acute Distress - Head Exam Head Exam: ATRAUMATIC - Respiratory Exam Respiratory Exam: Clear to Auscultation Bilateral, NORMAL BREATHING PATTERN - Cardiovascular Exam Cardiovascular Exam: REGULAR RHYTHM, +S1, +S2 - Rectal Exam Additional comments: left buttock wound- stage 4, contains necrotic tissue, foul smelling, Patient also soiled self, defect is approx 5*5cm but there is approximately 2cm of tunneling circumferentially - Neurological Exam Additional comments: non-verbal Results - Vital Signs Recent Vital Signs: Last Vital Signs Temp 99.3 F 05/12/17 10:09 Pulse 108 H 05/12/17 11:31 Resp 20 05/12/17 10:09 BP 131/68 05/12/17 10:09 Pulse Ox 99 05/12/17 11:31 - Labs Result Diagrams: 05/11/17 06:58 05/12/17 08:21 Labs: Laboratory Results - last 24 hr 05/11/17 05/11/17 05/12/17 17:18 21:48 06:35 Sodium Potassium Chloride Carbon Dioxide Anion Gap BUN Creatinine Est GFR ( Amer) Est GFR (Non-Af Amer) POC Glucose (mg/dL) 97 108 107 Random Glucose Calcium Magnesium 05/12/17 05/12/17 08:21 12:35 Sodium 160 H* Potassium 4.0 Chloride 129 H Carbon Dioxide 23 Anion Gap 12 BUN 29 H Creatinine 1.0 Est GFR ( Amer) > 60 Est GFR (Non-Af Amer) 53 POC Glucose (mg/dL) 92 Random Glucose 97 Calcium 9.2 Magnesium 2.3 Assessment & Plan - Assessment and Plan (Free Text) Assessment: 82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 Debbie Mackenzie, PGY1
[2017-05-12] MEDS: Collagenase 250 Units/gm Ointment(30 gm) TOP SCH (18:18)
[2017-05-12] MEDS: Vancomycin 1 gm/NS 200 ml 1 GM/200 ML BAG IVPB SCH (18:20)
[2017-05-13] MEDS: Piperacill/Tazo 3.375gm in Dex 3.375 GM/50 ML BAG IVPB SCH ×3 (01:15→17:40)
[2017-05-13] MEDS: Albuterol-Ipratrop 3 mg / 0.5 (3 ml) UD INH SCH ×4 (01:40→19:23)
[2017-05-13] MEDS: Budesonide 0.5 mg/2 ml Inhal Susp UD INH SCH ×2 (07:22→19:23)
[2017-05-13] MEDS: GlipiZIDE 2.5 mg Tab PO SCH (08:10)
[2017-05-13] MEDS: (Novolin R) Insulin Human Regular 100 units/ml vial SC SCH ×4 (08:14→22:00)
[2017-05-13 08:33] LABS: BASO % 0.2 % (0.0-2.0); EOS # 0.2 K/uL (0.0-0.7); EOS % 1.7 % (0.0-4.0); HEMOGLOBIN 9.2 g/dL (11.0-16.0); LYMPH % 10.1 % (20.0-40.0); MEAN CELL VOLUME 84.1 fL (81.0-99.0); MEAN CORPUSCULAR HEMOGLOBIN 26.6 pg (27.0-31.0); MEAN CORPUSCULAR HGB CONC 31.6 g/dL (33.0-37.0); MEAN PLATELET VOLUME 9.2 fL (7.2-11.7); MONO # 0.5 K/uL (0.0-0.8); MONO % 4.8 % (0.0-10.0); NEUT # 8.5 K/uL (1.8-7.0); NEUT % 83.2 % (50.0-75.0); RBC 3.47 Mil/uL (3.80-5.20); RED CELL DISTRIBUTION WIDTH 17.3 % (11.5-14.5); WHITE BLOOD COUNT 10.2 K/uL (4.8-10.8)
[2017-05-13 08:49] LABS: BLOOD UREA NITROGEN 16 mg/dL (7-17); CALCIUM 9.2 mg/dl (8.6-10.4); GFR AFRICAN-AMERICAN > 60; GFR NON-AFRICAN AMERICAN > 60
[2017-05-13] MEDS: Collagenase 250 Units/gm Ointment(30 gm) TOP SCH (10:32)
--- NOTE | 2017-05-13 11:17 | CP.PCM.PN ---
Subjective - Date & Time of Evaluation Date of Evaluation: 05/13/17 Time of Evaluation: 09:00 - Subjective Subjective: admitted for wound sepsis rx in progress Objective - Vital Signs/Intake and Output Vital Signs (last 24 hours): Temp Pulse Resp BP Pulse Ox 98.7 F 102 H 20 139/82 100 05/13/17 07:25 05/13/17 08:17 05/13/17 07:25 05/13/17 07:25 05/13/17 07:25 Intake and Output: 05/13/17 05/13/17 06:59 18:59 Intake Total 800 Output Total 950 Balance -150 - Medications Medications: Current Medications Albuterol/Ipratropium (Duoneb 3 Mg/0.5 Mg (3 Ml) Ud) 3 ml INH RQ6 [facility] Last Admin: 05/13/17 07:21 Dose: 3 ml Budesonide (Pulmicort Respules) 0.5 mg INH RQ12 [facility] Last Admin: 05/13/17 07:22 Dose: 0.5 mg Collagenase (Santyl) 0 gm TOP DAILY IVONE Last Admin: 05/12/17 18:18 Dose: 1 applic Glipizide (Glucotrol) 2.5 mg PO ACB [facility] Last Admin: 05/13/17 08:10 Dose: Not Given Piperacillin Sod/Tazobactam Sod (Zosyn 3.375 Gm Iv Premix) 3.375 gm in 50 mls @ 100 mls/hr IVPB Q8H IV[facility] Last Admin: 05/13/17 08:14 Dose: 100 mls/hr Vancomycin/Sodium Chloride (Vancocin) 1 gm in 200 mls @ 133.333 mls/hr IVPB Q24H [facility] Last Admin: 05/12/17 18:20 Dose: 133.333 mls/hr Potassium Chloride 10 meq/ (Dextrose) 1,005 mls @ 100 mls/hr IV .Q10H3M [facility] Last Admin: 05/13/17 10:27 Dose: Not Given Insulin Human Regular (Novolin R) 0 unit SC ACHS IVONE PRN Reason: Protocol Last Admin: 05/13/17 08:14 Dose: 2 unit - Labs Labs: 05/13/17 08:19 05/13/17 08:19 PT 16.3 SECONDS (9.7-12.2) H 05/09/17 13:09 INR 1.4 05/09/17 13:09 APTT 30 SECONDS (21-34) 05/09/17 13:09 - Constitutional Appears: Non-toxic, Confused, Cachectic, Chronically Ill - Head Exam Head Exam: NORMOCEPHALIC - Eye Exam Eye Exam: PERRL. absent: Scleral icterus - ENT Exam ENT Exam: Mucous Membranes Dry, Normal External Ear Exam - Neck Exam Neck Exam: absent: Lymphadenopathy - Respiratory Exam Respiratory Exam: Decreased Breath Sounds, Rhonchi - Cardiovascular Exam Cardiovascular Exam: REGULAR RHYTHM, +S1, +S2 - GI/Abdominal Exam GI & Abdominal Exam: Distended, Soft. absent: Tenderness - Rectal Exam Rectal Exam: Deferred Assessment and Plan (1) Chronic obstructive lung disease Status: Acute (2) Dementia Status: Acute (3) Respiratory distress Status: Acute (4) Sacral decubitus ulcer Status: Acute (5) Septic shock Status: Acute (6) Cellulitis of buttock, left Status: Acute (7) COPD (chronic obstructive pulmonary disease) Status: Chronic
--- NOTE | 2017-05-13 12:24 | CP.PCM.PN ---
Subjective - Date & Time of Evaluation Date of Evaluation: 05/13/17 Time of Evaluation: 12:22 - Subjective Subjective: Remains lethargic On treatment for wound infection Na level down to 147 K low despite repletion no other new events Objective - Vital Signs/Intake and Output Vital Signs (last 24 hours): Temp Pulse Resp BP Pulse Ox 98.7 F 102 H 20 139/82 100 05/13/17 07:25 05/13/17 08:17 05/13/17 07:25 05/13/17 07:25 05/13/17 07:25 Intake and Output: 05/13/17 05/13/17 06:59 18:59 Intake Total 800 Output Total 950 Balance -150 - Medications Medications: Current Medications Albuterol/Ipratropium (Duoneb 3 Mg/0.5 Mg (3 Ml) Ud) 3 ml INH RQ6 IVONE Last Admin: 05/13/17 07:21 Dose: 3 ml Budesonide (Pulmicort Respules) 0.5 mg INH RQ12 IVONE Last Admin: 05/13/17 07:22 Dose: 0.5 mg Collagenase (Santyl) 0 gm TOP DAILY IVONE Last Admin: 05/13/17 10:32 Dose: 1 applic Glipizide (Glucotrol) 2.5 mg PO ACB IVONE Last Admin: 05/13/17 08:10 Dose: Not Given Piperacillin Sod/Tazobactam Sod (Zosyn 3.375 Gm Iv Premix) 3.375 gm in 50 mls @ 100 mls/hr IVPB Q8H IVONE Last Admin: 05/13/17 08:14 Dose: 100 mls/hr Vancomycin/Sodium Chloride (Vancocin) 1 gm in 200 mls @ 133.333 mls/hr IVPB Q24H IVONE Last Admin: 05/12/17 18:20 Dose: 133.333 mls/hr Potassium Chloride 10 meq/ (Dextrose) 1,005 mls @ 100 mls/hr IV .Q10H3M IVONE Last Admin: 05/13/17 10:27 Dose: Not Given Insulin Human Regular (Novolin R) 0 unit SC ACHS IVONE PRN Reason: Protocol Last Admin: 05/13/17 12:20 Dose: 2 unit - Labs Labs: 05/13/17 08:19 05/13/17 08:19 PT 16.3 SECONDS (9.7-12.2) H 05/09/17 13:09 INR 1.4 05/09/17 13:09 APTT 30 SECONDS (21-34) 05/09/17 13:09 - Constitutional Appears: No Acute Distress, Confused, Chronically Ill - Head Exam Head Exam: ATRAUMATIC, NORMAL INSPECTION - Eye Exam Eye Exam: EOMI, Normal appearance - Neck Exam Neck Exam: Normal Inspection. absent: Tenderness - Respiratory Exam Respiratory Exam: Clear to Ausculation Bilateral, NORMAL BREATHING PATTERN - Cardiovascular Exam Cardiovascular Exam: REGULAR RHYTHM, +S1 - GI/Abdominal Exam GI & Abdominal Exam: Soft. absent: Tenderness - Extremities Exam Extremities Exam: Normal Inspection. absent: Tenderness - Neurological Exam Neurological Exam: Altered, CN II-XII Intact - Skin Skin Exam: Dry, Warm Assessment and Plan (1) Hypernatremia Status: Acute (2) COPD (chronic obstructive pulmonary disease) Status: Chronic (3) Decubitus skin ulcer Status: Chronic (4) Dementia Status: Chronic - Assessment and Plan (Free Text) Plan: Continue IV fluids Further replete K
--- NOTE | 2017-05-13 14:34 | CP.PCM.PN ---
Subjective - Date & Time of Evaluation Date of Evaluation: 05/13/17 Time of Evaluation: 14:31 - Subjective Subjective: Surgery: Dr. Lewis Pt seen and examined. Non-verbal. No acute events overnight. Objective - Vital Signs/Intake and Output Vital Signs (last 24 hours): Temp Pulse Resp BP Pulse Ox 98.7 F 102 H 20 139/82 100 05/13/17 07:25 05/13/17 08:17 05/13/17 07:25 05/13/17 07:25 05/13/17 07:25 Intake and Output: 05/13/17 05/13/17 06:59 18:59 Intake Total 800 Output Total 950 Balance -150 - Medications Medications: Current Medications Albuterol/Ipratropium (Duoneb 3 Mg/0.5 Mg (3 Ml) Ud) 3 ml INH RQ6 IVONE Last Admin: 05/13/17 13:26 Dose: 3 ml Budesonide (Pulmicort Respules) 0.5 mg INH RQ12 IVONE Last Admin: 05/13/17 07:22 Dose: 0.5 mg Collagenase (Santyl) 0 gm TOP DAILY IVONE Last Admin: 05/13/17 10:32 Dose: 1 applic Glipizide (Glucotrol) 2.5 mg PO ACB IVONE Last Admin: 05/13/17 08:10 Dose: Not Given Piperacillin Sod/Tazobactam Sod (Zosyn 3.375 Gm Iv Premix) 3.375 gm in 50 mls @ 100 mls/hr IVPB Q8H IVONE Last Admin: 05/13/17 08:14 Dose: 100 mls/hr Vancomycin/Sodium Chloride (Vancocin) 1 gm in 200 mls @ 133.333 mls/hr IVPB Q24H IVONE Last Admin: 05/12/17 18:20 Dose: 133.333 mls/hr Potassium Chloride 10 meq/ (Dextrose) 1,005 mls @ 100 mls/hr IV .Q10H3M IVONE Last Admin: 05/13/17 12:59 Dose: 100 mls/hr Insulin Human Regular (Novolin R) 0 unit SC ACHS IVONE PRN Reason: Protocol Last Admin: 05/13/17 12:20 Dose: 2 unit - Labs Labs: 05/13/17 08:19 05/13/17 08:19 PT 16.3 SECONDS (9.7-12.2) H 05/09/17 13:09 INR 1.4 05/09/17 13:09 APTT 30 SECONDS (21-34) 05/09/17 13:09 - Constitutional Appears: Non-toxic, Cachectic, Chronically Ill - Head Exam Head Exam: ATRAUMATIC, NORMOCEPHALIC - Eye Exam Eye Exam: EOMI - ENT Exam ENT Exam: Mucous Membranes Moist - Respiratory Exam Respiratory Exam: NORMAL BREATHING PATTERN. absent: Accessory Muscle Use, Respiratory Distress - Extremities Exam Additional comments: L buttock: stage IV decub ~5x5 cm w. undermining - Neurological Exam Neurological Exam: Awake. absent: Alert, Oriented x3 Assessment and Plan - Assessment and Plan (Free Text) Assessment: 82F w. stage IV decub L buttock -BID dressing changes w. santyl -possible OR tomorrow for debridement -NPO at midnight -d/w attending Cedric PGY2
[2017-05-13] MEDS: Vancomycin 1 gm/NS 200 ml 1 GM/200 ML BAG IVPB SCH (18:36)
[2017-05-14] MEDS: Albuterol-Ipratrop 3 mg / 0.5 (3 ml) UD INH SCH ×4 (01:45→19:54)
[2017-05-14] MEDS: Piperacill/Tazo 3.375gm in Dex 3.375 GM/50 ML BAG IVPB SCH ×3 (06:33→16:41)
[2017-05-14] MEDS: (Novolin R) Insulin Human Regular 100 units/ml vial SC SCH ×3 (08:19→21:39)
[2017-05-14] MEDS: GlipiZIDE 2.5 mg Tab PO SCH (08:19)
[2017-05-14] MEDS: Budesonide 0.5 mg/2 ml Inhal Susp UD INH SCH ×2 (08:48→19:54)
--- NOTE | 2017-05-14 10:13 | CP.PCM.PN ---
Subjective - Date & Time of Evaluation Date of Evaluation: 05/14/17 Time of Evaluation: 10:12 - Subjective Subjective: no acute distress, non verbal Objective - Vital Signs/Intake and Output Vital Signs (last 24 hours): Temp Pulse Resp BP Pulse Ox 98.2 F 109 H 18 153/55 H 99 05/14/17 07:35 05/14/17 07:35 05/14/17 07:35 05/14/17 07:35 05/14/17 07:35 Intake and Output: 05/14/17 05/14/17 06:59 18:59 Intake Total 1600 Output Total 1950 Balance -350 - Medications Medications: Current Medications Albuterol/Ipratropium (Duoneb 3 Mg/0.5 Mg (3 Ml) Ud) 3 ml INH RQ6 IVONE Last Admin: 05/14/17 08:48 Dose: 3 ml Budesonide (Pulmicort Respules) 0.5 mg INH RQ12 IVONE Last Admin: 05/14/17 08:48 Dose: 0.5 mg Collagenase (Santyl) 0 gm TOP DAILY IVONE Last Admin: 05/13/17 10:32 Dose: 1 applic Glipizide (Glucotrol) 2.5 mg PO ACB IVONE Last Admin: 05/14/17 08:19 Dose: Not Given Piperacillin Sod/Tazobactam Sod (Zosyn 3.375 Gm Iv Premix) 3.375 gm in 50 mls @ 100 mls/hr IVPB Q8H IVONE Last Admin: 05/14/17 08:54 Dose: 100 mls/hr Vancomycin/Sodium Chloride (Vancocin) 1 gm in 200 mls @ 133.333 mls/hr IVPB Q24H IVONE Last Admin: 05/13/17 18:36 Dose: 133.333 mls/hr Potassium Chloride 10 meq/ (Dextrose) 1,005 mls @ 100 mls/hr IV .Q10H3M IVONE Last Admin: 05/13/17 12:59 Dose: 100 mls/hr Insulin Human Regular (Novolin R) 0 unit SC ACHS IVONE PRN Reason: Protocol Last Admin: 05/14/17 08:19 Dose: Not Given - Labs Labs: 05/13/17 08:19 05/13/17 08:19 PT 16.3 SECONDS (9.7-12.2) H 05/09/17 13:09 INR 1.4 05/09/17 13:09 APTT 30 SECONDS (21-34) 05/09/17 13:09 - Constitutional Appears: No Acute Distress, Chronically Ill - Head Exam Head Exam: ATRAUMATIC, NORMOCEPHALIC - ENT Exam ENT Exam: Mucous Membranes Moist - Respiratory Exam Respiratory Exam: Decreased Breath Sounds - Cardiovascular Exam Cardiovascular Exam: +S1, +S2 - GI/Abdominal Exam GI & Abdominal Exam: Normal Bowel Sounds - Rectal Exam Rectal Exam: Deferred - Skin Additional comments: sacral wound Assessment and Plan (1) Chronic obstructive lung disease Status: Acute (2) Dementia Status: Acute (3) Sacral decubitus ulcer Status: Acute (4) Septic shock Status: Acute
--- NOTE | 2017-05-14 11:11 | CP.PCM.PN ---
Subjective - Date & Time of Evaluation Date of Evaluation: 05/14/17 Time of Evaluation: 11:10 - Subjective Subjective: plan for sacral ulcer debridement noted pt npo no labs today am non verbal lethargic Objective - Vital Signs/Intake and Output Vital Signs (last 24 hours): Temp Pulse Resp BP Pulse Ox 98.2 F 109 H 18 153/55 H 99 05/14/17 07:35 05/14/17 07:35 05/14/17 07:35 05/14/17 07:35 05/14/17 07:35 Intake and Output: 05/14/17 05/14/17 06:59 18:59 Intake Total 1600 Output Total 1950 Balance -350 - Medications Medications: Current Medications Albuterol/Ipratropium (Duoneb 3 Mg/0.5 Mg (3 Ml) Ud) 3 ml INH RQ6 IVONE Last Admin: 05/14/17 08:48 Dose: 3 ml Budesonide (Pulmicort Respules) 0.5 mg INH RQ12 IVONE Last Admin: 05/14/17 08:48 Dose: 0.5 mg Glipizide (Glucotrol) 2.5 mg PO ACB [facility] Last Admin: 05/14/17 08:19 Dose: Not Given Piperacillin Sod/Tazobactam Sod (Zosyn 3.375 Gm Iv Premix) 3.375 gm in 50 mls @ 100 mls/hr IVPB Q8H [facility] Last Admin: 05/14/17 08:54 Dose: 100 mls/hr Vancomycin/Sodium Chloride (Vancocin) 1 gm in 200 mls @ 133.333 mls/hr IVPB Q24H [facility] Last Admin: 05/13/17 18:36 Dose: 133.333 mls/hr Potassium Chloride 10 meq/ (Dextrose) 1,005 mls @ 100 mls/hr IV .Q10H3M [facility] Last Admin: 05/13/17 12:59 Dose: 100 mls/hr Insulin Human Regular (Novolin R) 0 unit SC ACHS IVONE PRN Reason: Protocol Last Admin: 05/14/17 08:19 Dose: Not Given - Labs Labs: 05/13/17 08:19 05/13/17 08:19 PT 16.3 SECONDS (9.7-12.2) H 05/09/17 13:09 INR 1.4 05/09/17 13:09 APTT 30 SECONDS (21-34) 05/09/17 13:09 - Constitutional Appears: No Acute Distress, Cachectic, Chronically Ill - Head Exam Head Exam: NORMAL INSPECTION - Eye Exam Eye Exam: Normal appearance - ENT Exam ENT Exam: Mucous Membranes Dry - Neck Exam Neck Exam: Normal Inspection - Respiratory Exam Respiratory Exam: Decreased Breath Sounds, NORMAL BREATHING PATTERN - Cardiovascular Exam Cardiovascular Exam: REGULAR RHYTHM, RRR - GI/Abdominal Exam GI & Abdominal Exam: Soft, Normal Bowel Sounds - Extremities Exam Extremities Exam: Normal Inspection Assessment and Plan (1) Dementia Status: Acute (2) Hypernatremia Status: Acute (3) Respiratory distress Status: Acute (4) Sacral decubitus ulcer Status: Acute (5) Septic shock Status: Acute (6) COPD (chronic obstructive pulmonary disease) Status: Chronic - Assessment and Plan (Free Text) Assessment: daily chems maintain hypotonic fluids consider palliative care
[2017-05-14] MEDS ORDERED: Lactated Ringer's 1,000 ML IV ONE (14:10)
[2017-05-14] MEDS ORDERED: Propofol 10 mg/ml Inj (20 ML) ONE (14:18)
[2017-05-14] MEDS ORDERED: Lidocaine 1% Inj (20ml) ONE (14:19)
--- NOTE | 2017-05-14 14:41 | PCM.SURG1 ---
Surgeon's Initial Post Op Note - Surgeon's Notes Surgeon: Debbie Strickler Attendant: Gurdeep Pre-Operative Diagnosis: Left buttock stage 4 ulcer Operative Findings: left buttock stage 4 ulcer Post-Operative Diagnosis: same Operation Performed: Sharp debridement and use of versijet to debride left buttock ulcer Specimen/Specimens Removed: necrotic tissue Estimated Blood Loss: EBL {In ML}: 5 Date of Surgery/Procedure: 05/14/17 Time of Surgery/Procedure: 14:25 (Surgical Operative report not done today because dictation system is down. )
[2017-05-14 16:36] VITALS: RESP 20
[2017-05-14] MEDS: Vancomycin 1 gm/NS 200 ml 1 GM/200 ML BAG IVPB SCH (17:28)
[2017-05-15] MEDS: Piperacill/Tazo 3.375gm in Dex 3.375 GM/50 ML BAG IVPB SCH ×3 (00:19→16:49)
[2017-05-15] MEDS: Albuterol-Ipratrop 3 mg / 0.5 (3 ml) UD INH SCH ×4 (01:22→19:39)
[2017-05-15] MEDS: (Novolin R) Insulin Human Regular 100 units/ml vial SC SCH ×3 (08:08→17:33)
[2017-05-15] MEDS: Budesonide 0.5 mg/2 ml Inhal Susp UD INH SCH ×2 (08:12→19:39)
--- NOTE | 2017-05-15 08:16 | CP.PCM.PN ---
Subjective - Date & Time of Evaluation Date of Evaluation: 05/15/17 Time of Evaluation: 08:13 - Subjective Subjective: SURGERY NOTE FOR DR. CARRASQUILLO 82F seen and examined at bedside. Patient demented and non-verbal. Objective - Vital Signs/Intake and Output Vital Signs (last 24 hours): Temp Pulse Resp BP Pulse Ox 97.3 F L 103 H 20 124/65 98 05/15/17 07:00 05/15/17 07:00 05/15/17 07:00 05/15/17 07:00 05/15/17 07:00 Intake and Output: 05/15/17 05/15/17 06:59 18:59 Intake Total 860 Output Total 1100 Balance -240 - Medications Medications: Current Medications Albuterol/Ipratropium (Duoneb 3 Mg/0.5 Mg (3 Ml) Ud) 3 ml INH RQ6 IVONE Last Admin: 05/15/17 08:12 Dose: 3 ml Budesonide (Pulmicort Respules) 0.5 mg INH RQ12 IVONE Last Admin: 05/15/17 08:12 Dose: 0.5 mg Glipizide (Glucotrol) 2.5 mg PO ACB IVONE Last Admin: 05/14/17 08:19 Dose: Not Given Piperacillin Sod/Tazobactam Sod (Zosyn 3.375 Gm Iv Premix) 3.375 gm in 50 mls @ 100 mls/hr IVPB Q8H IVONE Last Admin: 05/15/17 00:19 Dose: 100 mls/hr Vancomycin/Sodium Chloride (Vancocin) 1 gm in 200 mls @ 133.333 mls/hr IVPB Q24H IVONE Last Admin: 05/14/17 17:28 Dose: 133.333 mls/hr Potassium Chloride 10 meq/ (Dextrose) 1,005 mls @ 100 mls/hr IV .Q10H3M IVONE Last Admin: 05/15/17 08:09 Dose: 100 mls/hr Insulin Human Regular (Novolin R) 0 unit SC ACHS IVONE PRN Reason: Protocol Last Admin: 05/15/17 08:08 Dose: 2 unit - Labs Labs: 05/13/17 08:19 05/13/17 08:19 PT 16.3 SECONDS (9.7-12.2) H 05/09/17 13:09 INR 1.4 05/09/17 13:09 APTT 30 SECONDS (21-34) 05/09/17 13:09 - Constitutional Appears: Cachectic - Respiratory Exam Respiratory Exam: Clear to Ausculation Bilateral, NORMAL BREATHING PATTERN - Cardiovascular Exam Cardiovascular Exam: REGULAR RHYTHM, +S1, +S2 - Rectal Exam Additional comments: fecal incontinence, left buttock ulcer - packed with iodoform packing and optiform dressing Assessment and Plan - Assessment and Plan (Free Text) Assessment: 82F with stage 4 left buttock ulcer, s/p debridement POD1 Plan: - keep area clean - daily dressing changes - iodoform packing Further recs discuss with Dr. Debbie Mackenzie, PGY1
[2017-05-15] MEDS: GlipiZIDE 2.5 mg Tab PO SCH (08:55)
[2017-05-15 09:02] LABS: HEMOGLOBIN 9.6 g/dL (11.0-16.0); MEAN CELL VOLUME 84.4 fL (81.0-99.0); MEAN CORPUSCULAR HEMOGLOBIN 26.4 pg (27.0-31.0); MEAN CORPUSCULAR HGB CONC 31.3 g/dL (33.0-37.0); MEAN PLATELET VOLUME 9.4 fL (7.2-11.7); RBC 3.65 Mil/uL (3.80-5.20); RED CELL DISTRIBUTION WIDTH 17.5 % (11.5-14.5)
[2017-05-15 09:18] LABS: ALBUMIN 2.6 g/dL (3.5-5.0)
[2017-05-15 09:20] LABS: GFR AFRICAN-AMERICAN > 60; GFR NON-AFRICAN AMERICAN > 60
[2017-05-15 09:21] LABS: ALB/GLOB RATIO 0.6 (1.0-2.1); ALT/SGPT 27 U/L (9-52); AST/SGOT 27 U/L (14-36); BLOOD UREA NITROGEN 9 mg/dL (7-17)
--- NOTE | 2017-05-15 15:38 | CP.PCM.PN ---
Subjective - Date & Time of Evaluation Date of Evaluation: 05/15/17 Time of Evaluation: 15:35 - Subjective Subjective: s/p sacral decubitii debridement POD#1 Renal function stable. K decreased Objective - Vital Signs/Intake and Output Vital Signs (last 24 hours): Temp Pulse Resp BP Pulse Ox 97.3 F L 103 H 20 124/65 98 05/15/17 07:00 05/15/17 07:00 05/15/17 07:00 05/15/17 07:00 05/15/17 07:00 Intake and Output: 05/15/17 05/15/17 06:59 18:59 Intake Total 860 1520 Output Total 1100 Balance -240 1520 - Medications Medications: Current Medications Albuterol/Ipratropium (Duoneb 3 Mg/0.5 Mg (3 Ml) Ud) 3 ml INH RQ6 IVONE Last Admin: 05/15/17 08:12 Dose: 3 ml Budesonide (Pulmicort Respules) 0.5 mg INH RQ12 IVONE Last Admin: 05/15/17 08:12 Dose: 0.5 mg Glipizide (Glucotrol) 2.5 mg PO ACB IVONE Last Admin: 05/15/17 08:55 Dose: 2.5 mg Piperacillin Sod/Tazobactam Sod (Zosyn 3.375 Gm Iv Premix) 3.375 gm in 50 mls @ 100 mls/hr IVPB Q8H IVONE Last Admin: 05/15/17 09:42 Dose: 100 mls/hr Vancomycin/Sodium Chloride (Vancocin) 1 gm in 200 mls @ 133.333 mls/hr IVPB Q24H IVONE Last Admin: 05/14/17 17:28 Dose: 133.333 mls/hr Potassium Chloride (Potassium Chloride 20 Meq/100 Ml) 20 meq in 100 mls @ 50 mls/hr IVPB Q2 IVONE Stop: 05/15/17 19:59 Last Admin: 05/15/17 13:04 Dose: 50 mls/hr Insulin Human Regular (Novolin R) 0 unit SC ACHS IVONE PRN Reason: Protocol Last Admin: 05/15/17 12:18 Dose: 2 unit - Labs Labs: 05/15/17 08:47 05/15/17 08:47 PT 16.3 SECONDS (9.7-12.2) H 05/09/17 13:09 INR 1.4 05/09/17 13:09 APTT 30 SECONDS (21-34) 05/09/17 13:09 - Constitutional Appears: No Acute Distress, Chronically Ill - Head Exam Head Exam: ATRAUMATIC, NORMAL INSPECTION - Eye Exam Eye Exam: EOMI, Normal appearance - Neck Exam Neck Exam: Normal Inspection. absent: Tenderness - Respiratory Exam Respiratory Exam: Clear to Ausculation Bilateral, NORMAL BREATHING PATTERN - Cardiovascular Exam Cardiovascular Exam: REGULAR RHYTHM, +S1 - GI/Abdominal Exam GI & Abdominal Exam: Soft, Tenderness - Extremities Exam Extremities Exam: Normal Inspection. absent: Tenderness - Neurological Exam Neurological Exam: Altered, CN II-XII Intact - Skin Skin Exam: Dry, Warm Assessment and Plan (1) Hypernatremia Status: Acute (2) COPD (chronic obstructive pulmonary disease) Status: Chronic (3) Decubitus skin ulcer Status: Chronic (4) Dementia Status: Chronic - Assessment and Plan (Free Text) Plan: Wound care IV fluids Replete K
[2017-05-15 16:30] VITALS: BP 135/70; PULSE 108; TEMP 98.1; O2SAT 100
--- NOTE | 2017-05-15 16:44 | CP.PCM.PN ---
Subjective - Date & Time of Evaluation Date of Evaluation: 05/15/17 Time of Evaluation: 12:00 - Subjective Subjective: Pt seen an d examined today, non verbal. comfortable , NAD , No overnight events reported by RN s/p sacral wound debridement POD#1 Hgb stable - 9.6 Objective - Vital Signs/Intake and Output Vital Signs (last 24 hours): Temp Pulse Resp BP Pulse Ox 98.1 F 108 H 20 135/70 100 05/15/17 15:28 05/15/17 15:28 05/15/17 15:28 05/15/17 15:28 05/15/17 15:28 Intake and Output: 05/15/17 05/15/17 06:59 18:59 Intake Total 860 1520 Output Total 1100 Balance -240 1520 - Medications Medications: Current Medications Albuterol/Ipratropium (Duoneb 3 Mg/0.5 Mg (3 Ml) Ud) 3 ml INH RQ6 IVONE Last Admin: 05/15/17 15:46 Dose: Not Given Budesonide (Pulmicort Respules) 0.5 mg INH RQ12 IVONE Last Admin: 05/15/17 08:12 Dose: 0.5 mg Glipizide (Glucotrol) 2.5 mg PO ACB IVONE Last Admin: 05/15/17 08:55 Dose: 2.5 mg Piperacillin Sod/Tazobactam Sod (Zosyn 3.375 Gm Iv Premix) 3.375 gm in 50 mls @ 100 mls/hr IVPB Q8H IVONE Last Admin: 05/15/17 09:42 Dose: 100 mls/hr Vancomycin/Sodium Chloride (Vancocin) 1 gm in 200 mls @ 133.333 mls/hr IVPB Q24H IVONE Last Admin: 05/14/17 17:28 Dose: 133.333 mls/hr Potassium Chloride (Potassium Chloride 20 Meq/100 Ml) 20 meq in 100 mls @ 50 mls/hr IVPB Q2 IVONE Stop: 05/15/17 19:59 Last Admin: 05/15/17 15:37 Dose: 50 mls/hr Insulin Human Regular (Novolin R) 0 unit SC ACHS IVONE PRN Reason: Protocol Last Admin: 05/15/17 12:18 Dose: 2 unit - Labs Labs: 05/15/17 08:47 05/15/17 08:47 PT 16.3 SECONDS (9.7-12.2) H 05/09/17 13:09 INR 1.4 05/09/17 13:09 APTT 30 SECONDS (21-34) 05/09/17 13:09 - Constitutional Appears: Well, No Acute Distress Assessment and Plan - Assessment and Plan (Free Text) Assessment: 82 yr old female care home pt with a PMHx of dementia, osteoperosis, HTN, COPD, GERD, aphasia admitted for possible sepsis, hypernatremia, hypokalemia ARF , sacral decubitus s/p wound debridement POD 1 hGB - STABLE wbc- WNL renal function back to normal vanco - trough - 20. 3 k- 2.9 - replaced with [address] Hills pt needs 7 more days of zozyn and vanco D/W Dr. Uriostegui, recommends to hold vanco now and repeat vanco level at [facility] and continue zozyn for 1 week and cleared for discharge to [facility] and Dr. Uriostegui will follow the patient at [facility]
--- NOTE | 2017-05-17 22:29 | CP.PCM.PN ---
Subjective - Date & Time of Evaluation Date of Evaluation: 05/14/17 Time of Evaluation: 07:00 - Subjective Subjective: I saw her in bed resting she is alert eyes are open nonverbal she is in a contracted state no apparent distress she is for I&D of the sacral ulcer today and she is currently on IV antibiotics Objective - Vital Signs/Intake and Output Vital Signs (last 24 hours): Temp Pulse Resp BP Pulse Ox 98.1 F 108 H 20 135/70 100 05/15/17 15:28 05/15/17 15:28 05/15/17 15:28 05/15/17 15:28 05/15/17 15:28 - Labs Labs: 05/15/17 08:47 05/15/17 08:47 PT 16.3 SECONDS (9.7-12.2) H 05/09/17 13:09 INR 1.4 05/09/17 13:09 APTT 30 SECONDS (21-34) 05/09/17 13:09 - Constitutional Appears: No Acute Distress, Chronically Ill - Head Exam Head Exam: ATRAUMATIC - Respiratory Exam Respiratory Exam: NORMAL BREATHING PATTERN - Cardiovascular Exam Cardiovascular Exam: REGULAR RHYTHM - GI/Abdominal Exam GI & Abdominal Exam: Normal Bowel Sounds - Extremities Exam Additional comments: All 4 extremities are contracted - Neurological Exam Additional comments: Nonverbal eyes open - Additional Findings Additional findings: Large sacral decubitus ulcer for debridement today Assessment and Plan - Assessment and Plan (Free Text) Assessment: She has a large sacral ulcer she is nonverbal septic shock dehydration sacral decubitus diabetes low potassium hypernatremia Plan: To continue with IV antibiotics skin care she is going for I&D of the sacral ulcer will continue to give her treatment and hopefully she will get to a care home when she is improved she is on DuoNeb's insulin coverage IV fluids Zosyn IV is being followed by infectious disease renal and pulmonary we will continue aggressive treatment and care
--- NOTE | 2017-05-17 23:07 | CP.PCM.DIS ---
Provider - Provider Date of Admission: 05/09/17 13:47 Attending physician: Ap Uriostegui DO Time Spent in preparation of Discharge (in minutes): 20 Hospital Course - Lab Results Lab Results: Micro Results 05/14/17 14:28 Buttock Gram Stain - Final 05/14/17 14:28 Buttock Wound Culture - Preliminary No growth. 05/11/17 Unknown Buttock Gram Stain - Final 05/11/17 Unknown Buttock Wound Culture - Final Coagulase Neg Staphylococcus Corynebacterium Species 05/09/17 13:50 Urine,[place] Urine Culture - Final Escherichia Coli Most Recent Lab Values WBC 8.0 K/uL (4.8-10.8) 05/15/17 08:47 RBC 3.65 Mil/uL (3.80-5.20) L 05/15/17 08:47 Hgb 9.6 g/dL (11.0-16.0) L 05/15/17 08:47 Hct 30.8 % (34.0-47.0) L 05/15/17 08:47 MCV 84.4 fL (81.0-99.0) 05/15/17 08:47 MCH 26.4 pg (27.0-31.0) L 05/15/17 08:47 MCHC 31.3 g/dL (33.0-37.0) L 05/15/17 08:47 RDW 17.5 % (11.5-14.5) H 05/15/17 08:47 Plt Count 215 K/uL (130-400) 05/15/17 08:47 MPV 9.4 fL (7.2-11.7) 05/15/17 08:47 Neut % (Auto) 83.2 % (50.0-75.0) H 05/13/17 08:19 Lymph % (Auto) 10.1 % (20.0-40.0) L 05/13/17 08:19 [place] % (Auto) 4.8 % (0.0-10.0) 05/13/17 08:19 Eos % (Auto) 1.7 % (0.0-4.0) 05/13/17 08:19 Baso % (Auto) 0.2 % (0.0-2.0) 05/13/17 08:19 Neut # 8.5 K/uL (1.8-7.0) H 05/13/17 08:19 Lymph # 1.0 K/uL (1.0-4.3) 05/13/17 08:19 [place] # 0.5 K/uL (0.0-0.8) 05/13/17 08:19 Eos # 0.2 K/uL (0.0-0.7) 05/13/17 08:19 Baso # 0.0 K/uL (0.0-0.2) 05/13/17 08:19 PT 16.3 SECONDS (9.7-12.2) H 05/09/17 13:09 INR 1.4 05/09/17 13:09 APTT 30 SECONDS (21-34) 05/09/17 13:09 pO2 37 mm/Hg (30-55) 05/09/17 16:59 VBG pH 7.24 (7.32-7.43) L 05/09/17 16:59 VBG pCO2 47 mmHg (40-60) 05/09/17 16:59 VBG HCO3 18.2 mmol/L 05/09/17 16:59 VBG Total CO2 21.5 mmol/L (22-28) L 05/09/17 16:59 VBG O2 Sat (Calc) 63.0 % (40-65) 05/09/17 16:59 VBG Base Excess -7.3 mmol/L (0.0-2.0) L 05/09/17 16:59 VBG Potassium 3.7 mmol/L (3.6-5.2) 05/09/17 16:59 Sodium 167.0 mmol/l (132-148) H* 05/09/17 16:59 Chloride 136.0 mmol/L (98-107) H 05/09/17 16:59 Glucose 157 mg/dl (65-105) H 05/09/17 16:59 Lactate 5.3 mmol/L (0.7-2.1) H* 05/09/17 16:59 Crit Value Called To Xin abebe 6t 05/09/17 16:59 Crit Value Called By Geoff gr 05/09/17 16:59 Crit Value Read Back Y 05/09/17 16:59 Blood Gas Notified Time 1717 05/09/17 16:59 Sodium 141 mmol/L (132-148) 05/15/17 08:47 Potassium 2.9 mmol/L (3.6-5.2) L 05/15/17 08:47 Chloride 105 mmol/L (98-107) 05/15/17 08:47 Carbon Dioxide 26 mmol/L (22-30) 05/15/17 08:47 Anion Gap 13 (10-20) 05/15/17 08:47 BUN 9 mg/dL (7-17) 05/15/17 08:47 Creatinine 0.8 MG/DL (0.7-1.2) 05/15/17 08:47 Est GFR ( Amer) > 60 05/15/17 08:47 Est GFR (Non-Af Amer) > 60 05/15/17 08:47 POC Glucose (mg/dL) 109 mg/dL (65-110) 05/15/17 15:58 Random Glucose 156 mg/dL (65-105) H 05/15/17 08:47 Lactic Acid 3.8 mmol/L (0.7-2.1) H 05/09/17 15:37 Calcium 9.0 mg/dl (8.6-10.4) 05/15/17 08:47 Phosphorus 4.1 mg/dL (2.5-4.5) 05/09/17 13:09 Magnesium 2.3 mg/dL (1.6-2.3) 05/12/17 08:21 Total Bilirubin 0.6 mg/dL (0.2-1.3) 05/15/17 08:47 AST 27 U/L (14-36) 05/15/17 08:47 ALT 27 U/L (9-52) 05/15/17 08:47 Alkaline Phosphatase 124 U/L (38-126) 05/15/17 08:47 Troponin I 0.0170 ng/mL (0.00-0.120) 05/09/17 13:09 NT-Pro-B Natriuret Pep 443 pg/mL (0-900) 05/09/17 13:09 Total Protein 7.0 g/dL (6.3-8.3) 05/15/17 08:47 Albumin 2.6 g/dL (3.5-5.0) L 05/15/17 08:47 Globulin 4.4 gm/dL (2.2-3.9) H 05/15/17 08:47 Albumin/Globulin Ratio 0.6 (1.0-2.1) L 05/15/17 08:47 Venous Blood Potassium 3.7 mmol/L (3.6-5.2) 05/09/17 16:59 Urine Color Ivanna (YELLOW) 05/09/17 14:22 Urine Clarity Hazy (Clear) 05/09/17 14:22 Urine pH 5.0 (5.0-8.0) 05/09/17 14:22 Ur Specific [place] 1.026 (1.003-1.030) 05/09/17 14:22 Urine Protein 1+ mg/dL (NEGATIVE) H 05/09/17 14:22 Urine Glucose (UA) Normal mg/dL (Normal) 05/09/17 14:22 Urine Ketones Negative mg/dL (NEGATIVE) 05/09/17 14:22 Urine Blood Negative (NEGATIVE) 05/09/17 14:22 Urine Nitrate Negative (NEGATIVE) 05/09/17 14:22 Urine Bilirubin Negative (NEGATIVE) 05/09/17 14:22 Urine Urobilinogen 2.0 mg/dL (0.2-1.0) H 05/09/17 14:22 Ur Leukocyte Esterase Trace Ezio/uL (Negative) 05/09/17 14:22 Urine WBC (Auto) 4 /hpf (0-5) 05/09/17 14:22 Urine RBC (Auto) 3 /hpf (0-3) 05/09/17 14:22 Ur Squamous Epith Cells 2 /hpf (0-5) 05/09/17 14:22 Urine Bacteria Few (<OCC) H 05/09/17 14:22 Vancomycin Trough 20.3 ug/mL (5.0-10.0) H 05/15/17 08:47 Blood Type O POSITIVE 05/10/17 11:34 Antibody Screen Negative 05/10/17 11:34 Crossmatch See Detail 05/10/17 11:34 - Hospital Course Hospital Course: 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 septic shock for treatment of the sacral ulcer IV antibiotics and was sent home for 5 more days of IV antibiotics And skin care Discharge Exam - Head Exam Head Exam: ATRAUMATIC - Additional Findings Additional findings: She is bedbound contracted all 4 extremities her eyes open she is nonverbal heart regular rate lungs clear to auscultation abdomen soft large decubitus ulcer on IV antibiotics Discharge Plan - Discharge Medications Prescriptions: Potassium Chloride 20 meq PO DAILY #3 tab.er.prt Piperacillin/Tazobact 3.375 gm [Zosyn 3.375 in NS 100ml] 3.375 gm IVPB Q8 #21 bag - Follow Up Plan Condition: CRITICAL Disposition: REHAB FACILITY/REHAB UNIT Instructions: COPD (Chronic Obstructive Pulmonary Disease) (DC), Sepsis (GEN), Hypernatremia (DC) Additional Instructions: Please admit patient under Dr. Uriostegui service - call Dr. Uriostegui upon patient arrival to the facility Please do vanco random level on saturday - call with result to restart Vanco Continue zozyn x 1 week Repeat cbc and bmp on saturday Continue all other medication as per Med. Rec. Referrals: Ap Uriostegui DO [Staff Provider] -
--- NOTE | 2017-06-04 17:46 | PCM.OP ---
Operative Report - Operative Report Date of Surgery/Procedure: 05/13/17 Surgeon: Dr. Lewis Insurance Collector: none Anesthesia/Sedation: Given by Staff Pre-Operative Diagnosis: decubitus ulcer buttock Post-Operative Diagnosis: decubitus ulcer buttock Indication for Surgery: Patient is an elderly female with an ulcer, which has necrotic tissue underneath it. Procedure/Operation Description: 1. debridement of skin subcutaneous tissue and muscle of buttock. Patient was brought into OR, given anesthesia in the skin. Subcutaneous tissues were degraded away, as well as the adjacent muscle. After this had been done, the wound was packed open and the procedure was terminated. The operation carried out debridement of skin, subcutaneous tissue and muscle of buttock. Estimated Blood Loss: <25cc Complications: None
--- NOTE | 2017-06-07 11:22 | PQF DEBRID ---
This form is a permanent part of the medical record To Randy Friedman MD Patient was admitted thru the ED with fever. History of COPD, GERD, Aphasic, Etc. Diagnosed with Sepsis with Septic shock. Diabetis with Hyperglycemia. Patient also had a stage 4 ulcer on left buttock which Debridement was done. Please Clarify if Debridement was : Excisonal or Non Excisional? Please check the boxes below for the documentation to meet the Criteria for EXCISIONAL DEBRIDEMEBNT. Thank you. Clarification of your documentation is requested to better reflect the severity of illness and intensity of treatment of your patient. Indicators present [x] Documentation of wound care / debridement EXCISIONAL ? NON EXCISIONAL ? [x] Technique: [] [x] Instrument used:[] [x] Nature of Tissue Removed:[] documented - Necrosis [x] Appearance of Wound:[] [] Size of Wound: [] [x] Depth of Debridement: [] [] Other: [] Location in the medical record that reflects the above clinical findings: [] Other Treatment Provided: [] PHYSICIAN'S RESPONSE Based on your medical judgment, can you further clarify the precise NATURE, DEPTH, EXTENT and / or METHODS of wound debridement utilized in this case: [] EXCISIONAL debridement use of a scalpel / blade to cut away tissue Depth (subcutaneous, fascia, muscle, soft tissue and bone) [] Size of Wound [] NON-EXCISIONAL debridement chemical, scrubbing, trimming with a scissor/ versajet [] Other, please indicate: [] [] If unable to determine, please check the box, sign and date. In responding to this query, please exercise your independent professional judgment. The fact that a question is asked does not imply that any particular answer is desired or expected. Thank you for your clarification on this documentation. If you have any questions please call:[ ] * Thank you, [ Esha Ramon CCS support manager [facility]
== END 2017-05-15 21:31 | DRG 853 ==
LOC: C.ER 12:37 → C.9E 13:47 → C.6T 14:36
PROVIDERS: ADMIT Family Medicine; ATTEND Family Medicine
PROC: 30233N1 Transfusion of Nonautologous Red Blood Cells into Peripheral Vein, Percutaneous Approach (ICD-10-PCS; principal; 2017-05-10)
PROC: 0JD90ZZ Extraction of Buttock Subcutaneous Tissue and Fascia, Open Approach (ICD-10-PCS; 2017-05-13)
DX: A41.9 Sepsis, unspecified organism (principal); R65.21 Severe sepsis with septic shock; N17.9 Acute kidney failure, unspecified; L89.324 Pressure ulcer of left buttock, stage 4; E87.0 Hyperosmolality and hypernatremia; E87.2 Acidosis; L89.159 Pressure ulcer of sacral region, unspecified stage; F03.90 Unspecified dementia, unspecified severity, without behavioral disturbance, psychotic disturbance, mood disturbance, and anxiety; L03.317 Cellulitis of buttock; J44.1 Chronic obstructive pulmonary disease with (acute) exacerbation; E11.9 Type 2 diabetes mellitus without complications; R47.01 Aphasia; E86.0 Dehydration; I10 Essential (primary) hypertension; E78.00 Pure hypercholesterolemia, unspecified; M81.0 Age-related osteoporosis without current pathological fracture; Z66 Do not resuscitate; K21.9 Gastro-esophageal reflux disease without esophagitis; Z74.01 Bed confinement status; J45.909 Unspecified asthma, uncomplicated; E87.6 Hypokalemia; E78.5 Hyperlipidemia, unspecified; Z79.4 Long term (current) use of insulin; R15.9 Full incontinence of feces